=== PATIENT | female | born 1980 | race Caucasian/White ===

== ENCOUNTER 2021-01-17 10:46 | Inpatient (IN) | payer OTHER, SELFPAY ==
--- NOTE | ~2021-01-17 | CT_ITS ---
EXAMINATION: CT HAND WITH CONTRAST, RIGHT CLINICAL INFORMATION: Cellulitis/swelling COMPARISON: Radiographs 01/17/2021 TECHNIQUE: 85 mL Omnipaque 350 intravenous contrast was utilized. Multidetector helical imaging was performed through the right hand. Coronal and sagittal reformatted images were created. This CT examination was performed using dose optimization techniques as appropriate, variously including the following: *Automated exposure control *Adjustment of mA and/or kV according to patient size (this includes techniques or standardized protocols for targeted exams where dose is matched to indication/reason for exam; i.e. extremities or head) *Use of iterative reconstruction technique DLP: 111 mGy-cm FINDINGS: There is soft tissue edema throughout the dorsum of the wrist and hand. There is an irregularly-shaped peripherally enhancing low-density collection in the dorsal soft tissues extending from the distal forearm to the proximal metacarpals. The main portion of this collection measures approximately 3.5 cm in length, and on cross-sectional slices this measures up to approximately 2.4 x 1.4 cm. In the setting of cellulitis, this is consistent with abscess. A thin deeper collection is also suspected abutting the extensor digitorum tendons in the mid hand at the level of the metacarpal extending for approximately 1.7 cm in length and measuring up to 1.3 x 0.4 cm in short axis. There is subcutaneous edema in the volar aspect of the hand, left prominent than the dorsal edema. Articular alignment is anatomic. No acute fracture or significant focal osseous abnormality is seen. CT/CT hand RT w con IMPRESSION: Peripherally enhancing collection in the dorsal soft tissues extending from the distal forearm to the proximal hand, measuring approximately 3.5 cm in length. Deeper to this abutting the extensor digitorum tendons of the mid hand there is an additional thin collection measuring up to 1.7 cm in length. Appearance is suspicious for abscesses in the setting of surrounding cellulitis.
--- NOTE | ~2021-01-17 | XR_ITS ---
EXAMINATION: XR HAND, RIGHT CLINICAL INFORMATION: Rule out osteomyelitis COMPARISON: None TECHNIQUE: PA, lateral, and oblique views of the right hand. FINDINGS: Bone alignment is normal. No fracture or dislocation is seen. No x-ray evidence of osteomyelitis is seen. Joint spaces are normal. There is diffuse soft tissue swelling of the hand, particularly over the dorsal hand and wrist. XR/XR hand RT 2V IMPRESSION: Diffuse soft tissue swelling. No x-ray evidence of osteomyelitis or fracture.
[2021-01-17 11:52] VITALS: BP 115/75; PULSE 98; RESP 16; TEMP 36.7; O2SAT 98; BMI 28.3
--- NOTE | 2021-01-17 12:06 | ED_ITS ---
HPI - Extremity Problem General Chief complaint: Extremity Problem Stated complaint: Swollen arm hand Time Seen by Provider: 01/17/21 12:06 Related Data Home Medications Medication Instructions Recorded Confirmed albuterol sulfate [Ventolin HFA] 2 puff INHALATION TID PRN 01/17/21 01/17/21 cyanocobalamin (vitamin B-12) 1,000 mcg PO DAILY 01/17/21 01/17/21 [Vitamin B-12] fluticasone propion-salmeterol 1 inh INHALATION BID 01/17/21 01/17/21 [Advair Diskus] methadone [Methadose] 40 mg PO DAILY 01/17/21 01/17/21 prazosin 1 cap PO BEDTIME 01/17/21 01/17/21 quetiapine 1 tab PO BEDTIME 01/17/21 01/17/21 sertraline 1 tab PO DAILY 01/17/21 01/17/21 Allergies Allergy/AdvReac Type Severity Reaction Status Date / Time latex [Latex] Allergy Mild RASH,ITCHY Unverified 03/16/20 16:42 aspirin [ASA] Allergy Unknown AGGRAVATE Unverified 03/16/20 16:42 COLITIS furosemide [Lasix] Allergy Unknown hives Verified 03/12/19 00:00 ketorolac [From TORADOL] Allergy Unknown ANXIETY, Unverified 03/16/20 16:42 dizziness metoclopramide [From REGLAN] Allergy Unknown PASSED OUT Unverified 03/16/20 16:42 NSAIDS (Non-Steroidal Allergy Unknown AGGRAVATE Unverified 03/16/20 16:42 Anti-Inflamma COLITIS [NSAIDS (NON-STEROIDAL ANTI-INFLAMMA] promethazine [From PHENERGAN] Allergy Unknown UNKNOWN Unverified 03/16/20 16:42 tramadol [TRAMADOL] Allergy Unknown UNKNOWN Unverified 03/16/20 16:42 morphine AdvReac Unknown Verified 03/12/19 00:00 trazodone [TRAZODONE] AdvReac Unknown NAUSEA & Unverified 03/16/20 16:42 VOMITING From BENADRYL Allergy Unknown SHAKING Uncoded 03/16/20 16:42 Review of Systems Review of Systems: Constitutional : No Weight loss, No Fever, No Chills, No Night Sweats, No Fatigue, No Malaise ENT/Mouth : No Hearing loss, No Ear Pain, No Nasal Congestion, No Sinus Pain, No Hoarseness, No sore throat, No Rhinorrhea, No Swallowing Difficulty Eyes: No Eye Pain, No Swelling, No Redness, No Foreign Body, No Discharge, No Vision Changes Cardiovascular : No Chest Pain, No SOB, No Dyspnea on Exertion, No Orthopnea, No Edema, No Palpitations Respiratory : No Cough, No Sputum, No Wheezing, No Smoke Exposure, No Dyspnea Gastrointestinal : No Nausea, No Vomiting, No Diarrhea, No Constipation, No abdo immanuel Pain, No Hematochezia, No Melena Genitourinary : no irregular bleeding, No Dysuria, No Urinary Frequency, No Hematuria, No Urinary Incontinence, No Urgency, No Flank Pain, No Urinary Flow Changes, No Hesitancy Musculoskeletal : right wrist pain, No Myalgias, right wrist Joint Swelling Skin : No Skin Lesions, No rash, redness increased warmed to right wrist Neuro : No Weakness, No Numbness, No Paresthesias, No Loss of Consciousness, No Dizziness, No Headache Psych : No Anxiety/Panic, No Depression, No SI/HI/AH/VH, No Social Issues, Heme/Lymph: No Bruising, No Bleeding,No Lymphadenopathy Endocrine : No Polyuria, No Polydipsia, No Temperature Intolerance Yes all other systems are reviewed and are negative PMFSH Past Medical History Medical History (Updated 01/17/21 @ 17:36 by Swati Vegas NP) Anxiety Asthma Depression IV drug user Pancreatitis PTSD (post-traumatic stress disorder) Ulcerative colitis Social History Social History Advance Directives: No Advance Directives Information Provided: Yes Patient : No Physical Exam Vital Signs: Vital Signs: Last Vital Signs Temp 98.1 F 01/17/21 17:11 Pulse 90 01/17/21 17:11 Resp 16 01/17/21 20:09 BP 123/73 01/17/21 17:11 Pulse Ox 98 01/17/21 17:11 Body Mass Index 28.3 Const: General: healthy appearing, no acute distress and well developed Nutritional Appearance: well nourished Orientation/consciousness: patient oriented x3 Neck: Neck: Yes normal visual inspection, Yes full ROM and Yes trachea midline Thyroid: Thyroid normal Resp: Auscultation: clear to auscultation bilaterally Cardio: Rate: regular rate Rhythm: regular rhythm GI: Inspection: Yes normal to inspection and No distended Palpation (GI): No hepatosplenomegaly present Auscultation: normal bowel sounds Skin: General skin exam: elasticity normal, turgor normal and dry skin Neuro: General: patient oriented x3 Extrem: Right upper extremity: edema, no joint enlargement and wrist ( swelling, redness, increased warmth) Course Course Course Narrative: 40-year-old female here today for complaining of her right hand pain swelling. Patient is heroin user and does not checked in her hand. Patient reports that she also had syncopal episode few days ago and fell onto her right side. Patient woke up this morning with severe right hand pain and swelling. Unable to move her wrist or her fingers. Patient reports that her last time she used was last . Denies fever or chills. Denies any other symptoms. Reevaluation(s) Reevaluation #1: Patient re-evaluated by Dr. Schmidt, x-ray positive for soft tissue swelling and negative for osteomyelitis or fracture. We will admit patient for cellulitis. Mild leukocytosis. Will admit start her on Zosyn and Vanco. Blood cultures sent. Lactic 0.7 Reevaluation #2: Patient did not want a stay at the hospital, however after lo ng persuasion of the infection and the swelling increasing there is a need for IV antibiotics. Patient is agreeable and will stay at the hospital. Spoke to the hospitalist who will admit the patient. MDM - Extremity (Nontraumatic) Lab Data Result diagrams: 01/17/21 12:08 01/17/21 12:10 Labs: Lab Results 01/17/21 01/17/21 01/17/21 Range/Units 12:08 12:08 12:10 WBC 12.9 H (4.8-10.8) X10*3/uL RBC 4.34 (4.20-5.50) X10*6/uL Hgb 14.3 (12.0-16.0) g/dl Hct 42.5 (37-47) % MCV 97.9 (80-98) fL MCH 32.9 (27.0-33.0) pg MCHC 33.6 (31.0-35.0) g/dl RDW 13.7 (11.0-16.0) % Plt Count 274 (160-400) X10*3/uL MPV 9.8 (9.4-12.3) fL Immature Gran % (Auto) 0.4 (0.0-0.4) % Neut % (Auto) 83.7 H (45-73) % Lymph % (Auto) 8.4 L (20-40) % [place] % (Auto) 7.1 (2-11) % Eos % (Auto) 0.2 (0-4) % Baso % (Auto) 0.2 (0-2) % Lymph # (Auto) 1.1 L (1.2-4.9) X10*3/uL [place] # (Auto) 0.9 (0.1-1.2) X10*3/uL Eos # (Auto) 0.0 (0.0-0.4) X10*3/uL Baso # (Auto) 0.0 (0.0-0.2) X10*3/uL Abs Immat Gran (auto) 0.05 H (0.00-0.03) X10*3/uL Absolute Neuts (auto) 10.8 H (2.0-8.3) X10*3/uL Absolute Nucleated RBC 0.000 (0.0-0.012) X10*3/uL Nucleated RBC % (auto) 0.0 (0.0-0.2) /100WBC ESR 14 (0-20) MM/HR Sodium 141 (135-145) mmol/L Potassium 3.7 (3.3-5.1) mmol/L Chloride 104 (96-108) mmol/L Carbon Dioxide 25 (22-29) mmol/L Anion Gap 16 (12-20) BUN 13 (9-16) mg/dL Creatinine 0.72 (0.5-1.4) mg/dL Estim Creat Clear Calc 106.6 Estimated GFR > 60 Random Glucose 89 (60-115) mg/dL Lactic Acid (0.5-2.0) mmol/L Calcium 9.4 (8.4-10.2) mg/dL Total Bilirubin 0.5 (0.0-1.0) mg/dL AST 12 (5-31) U/L ALT 8 (0-31) U/L Alkaline Phosphatase 75 (39-117) U/L C-Reactive Protein 6.78 H (< or = 0.50) mg/dL Total Protein 7.2 (6.5-8.0) g/dL Albumin 4.4 (3.5-5.0) g/dL COVID-19 (QUE) (Negative) COVID-19 Clin Com 01/17/21 01/17/21 Range/Units 12:10 15:55 WBC (4.8-10.8) X10*3/uL RBC (4.20-5.50) X10*6/uL Hgb (12.0-16.0) g/dl Hct (37-47) % MCV (80-98) fL MCH (27.0-33.0) pg MCHC (31.0-35.0) g/dl RDW (11.0-16.0) % Plt Count (160-400) X10*3/uL MPV (9.4-12.3) fL Immature Gran % (Auto) (0.0-0.4) % Neut % (Auto) (45-73) % Lymph % (Auto) (20-40) % [place] % (Auto) (2-11) % Eos % (Auto) (0-4) % Baso % (Auto) (0-2) % Lymph # (Auto) (1.2-4.9) X10*3/uL [place] # (Auto) (0.1-1.2) X10*3/uL Eos # (Auto) (0.0-0.4) X10*3/uL Baso # (Auto) (0.0-0.2) X10*3/uL Abs Immat Gran (auto) (0.00-0.03) X10*3/uL Absolute Neuts (auto) (2.0-8.3) X10*3/uL Absolute Nucleated RBC (0.0-0.012) X10*3/uL Nucleated RBC % (auto) (0.0-0.2) /100WBC ESR (0-20) MM/HR Sodium (135-145) mmol/L Potassium (3.3-5.1) mmol/L Chloride (96-108) mmol/L Carbon Dioxide (22-29) mmol/L Anion Gap (12-20) BUN (9-16) mg/dL Creatinine (0.5-1.4) mg/dL Estim Creat Clear Calc Estimated GFR Random Glucose (60-115) mg/dL Lactic Acid 0.7 (0.5-2.0) mmol/L Calcium (8.4-10.2) mg/dL Total Bilirubin (0.0-1.0) mg/dL AST (5-31) U/L ALT (0-31) U/L Alkaline Phosphatase (39-117) U/L C-Reactive Protein (< or = 0.50) mg/dL Total Protein (6.5-8.0) g/dL Albumin (3.5-5.0) g/dL COVID-19 (QUE) Negative (Negative) COVID-19 Clin Com See Note Imaging Data right hand x-ray: Radiologist's impression: FINDINGS: Bone alignment is normal. No fracture or dislocation is seen. No x-ray evidence of osteomyelitis is seen. Joint spaces are normal. There is diffuse soft tissue swelling of the hand, particularly over the dorsal hand and wrist.
[2021-01-17 12:18] LABS: MANUAL DIFF FLAG NO
[2021-01-17 12:22] LABS: Basophils Percent Auto 0.2 % (0-2); Eosinophils Percent Auto 0.2 % (0-4); Hematocrit 42.5 % (37-47); Hemoglobin 14.3 g/dl (12.0-16.0); Imm Gran Abs Auto 0.05 X10*3/uL (0.00-0.03); Imm Gran Pct Auto 0.4 % (0.0-0.4); Lymphocytes Absolute Auto 1.1 X10*3/uL (1.2-4.9); Lymphocytes Percent Auto 8.4 % (20-40); Mean Corpuscular HGB Conc 33.6 g/dl (31.0-35.0); Mean Corpuscular Hemoglobin 32.9 pg (27.0-33.0); Mean Corpuscular Volume 97.9 fL (80-98); Mean Platelet Volume 9.8 fL (9.4-12.3); Monocytes Absolute Auto 0.9 X10*3/uL (0.1-1.2); Monocytes Percent Auto 7.1 % (2-11); Neutrophils Absolute Auto 10.8 X10*3/uL (2.0-8.3); Neutrophils Percent Auto 83.7 % (45-73); Platelet Count 274 X10*3/uL (160-400); Red Blood Count 4.34 X10*6/uL (4.20-5.50); Red Cell Distribution Width 13.7 % (11.0-16.0); White Blood Count 12.9 X10*3/uL (4.8-10.8)
[2021-01-17 12:45] LABS: Lactic Acid 0.7 mmol/L (0.5-2.0)
[2021-01-17 13:10] LABS: Alanine Aminotransferase 8 U/L (0-31); Albumin Level 4.4 g/dL (3.5-5.0); Alkaline Phosphatase 75 U/L (39-117); Anion Gap 16 (12-20); Aspartate Amino Transferase 12 U/L (5-31); Bilirubin Total 0.5 mg/dL (0.0-1.0); Blood Urea Nitrogen 13 mg/dL (9-16); C Reactive Protein 6.78 mg/dL (< or = 0.50); Calcium 9.4 mg/dL (8.4-10.2); Carbon Dioxide 25 mmol/L (22-29); Chloride 104 mmol/L (96-108); Creatinine Clr Calc Pharmacy 106.6; Estimated Glomerular Filt Rate > 60; Glucose Random 89 mg/dL (60-115); Potassium 3.7 mmol/L (3.3-5.1); Sodium 141 mmol/L (135-145); Total Protein 7.2 g/dL (6.5-8.0)
[2021-01-17 13:12] LABS: Erythrocyte Sedimentation Rate 14 MM/HR (0-20)
--- NOTE | 2021-01-17 13:29 | PC.NURSE ---
AWAITING 2ND SET BLOOD CX PRIOR TO ANTIBIOTICS, DIFFICULT STICK
[2021-01-17] MEDS: HYDROmorphone HCl 1 MG/ML SYRINGE IVPUSH ×2 (14:20→16:42)
--- NOTE | 2021-01-17 15:56 | PC.NURSE ---
pt is a tough stick- multiple attempts even by phelb- plan to start abx
[2021-01-17] MEDS: Piperacillin Sodium/Tazobactam 3.375 GM in 0.9 % Sodium Chloride 50 ML IV ×2 (16:05→20:37)
--- NOTE | 2021-01-17 16:05 | PC.NURSE ---
staff had difficulty obtaining blood cultures from patient therefore delaying the administration of the iv antibiotics
[2021-01-17 16:24] LABS: COVID-19 Test Negative (Negative)
--- NOTE | 2021-01-17 17:02 | PC.NURSE ---
patients belongings was gone through via security
[2021-01-17 17:11] VITALS: BP 123/73; PULSE 90; RESP 16; TEMP 36.7; O2SAT 98
[2021-01-17] MEDS: 0.9 % Sodium Chloride 1,000 ML 999 ML IV (17:11)
[2021-01-17] MEDS: vancomycin HCL 1,000 MG in 0.9 % Sodium Chloride 250 ML 270 MG IV (17:11)
--- NOTE | 2021-01-17 17:30 | PM.IMHP ---
Assessment and Plan (1) Hand swelling: Status: Acute 40-year-old woman presents to the ER with right hand swelling and pain after injection of IV heroin. Right hand swelling. likely cellulitis, redness, significant swelling, soft compartments X-ray shows diffuse soft tissue swelling with no evidence of osteomyelitis or fracture Will treat with vancomycin and Zosyn Id consult Follow blood cultures Pain control Leukocytosis. Secondary to cellulitis follow CBC Opiate abuse On methadone, verify dose in the morning Addiction Services consult DVT prophylaxis with Lovenox Attending Dr. San Full code History of Present Illness Date of Service: 01/17/21 Chief Complaint: Hand pain 40-year-old woman presented to the ER with complaints of worsening right hand swelling. She has a history of heroin use and injected in that hand. She noted swelling that was worse today. She reports that she woke up this morning with severe right hand pain and noted that he was quite swollen. She denied fever, chills, nausea, vomiting, diarrhea she denied heroin use today and reported her last time that she use was last . Apparently in the ER patient was in the bathroom for some time there was concern for heroin use at that time, she was searched by security team. She had a x-ray of the right hand which showed diffuse soft tissue swelling with no evidence of osteomyelitis or fracture. She was given vancomycin, Zosyn, Dilaudid. She will be admitted for further management and treatment of acute cellulitis and edema to right hand. Review of Systems Review of Systems: Denies any recent fever chills or decrease in appetite respiratory denies any shortness of breath coverage production cardiovascular denies chest pain gastrointestinal denies any dysphagia abdominal pain nausea vomiting or diarrhea genitourinary denies any dysuria frequency or hematuria musculoskeletal See above neuropsych denies any weakness or seizures all other systems reviewed are negative [facility] Medical History Anxiety Asthma Cholecystectomy planned Depression IV drug user Pancreatitis PTSD (post-traumatic stress disorder) Ulcerative colitis Surgical History Tubal ligation status Social History Household Members: Family Household Members Other:: mother Housing: House Do you presently have visiting nurse or other home services: No Patient Tobacco Use Status: Current everyday Tobacco user Tobacco use type: Cigarette Cigarette Packs Per Day: 1 Cigarettes Per Day: 20.0 Smoked in Last 30 Days: Yes e-Cigarette/Vaping Use: Never Used Patient Interested in Nicotine Replacement: Yes Patient Given Instructions on How to Stop Smoking: Yes Date Education Initiated: 01/18/21 Second Hand Smoke Exposure: Yes Use of substances other than those prescribed or required for medical reasons: No Currently Displaying Signs/Symptoms of Drug Intoxication Withdrawal: No Have you been hit, kicked, punched, or otherwise hurt by someone within the past year? If so, by whom?: No Do you feel safe in your current relationship?: No Current Relationship Is there a partner from a previous relationship who is making you feel unsafe now?: No Are you made to feel afraid or neglected: No Are you DNR?: No Advance Directives: No Advance Directives Information Provided: Yes Do you have thoughts of harming others: None Do you have a plan to hurt others: No Plan Recently lost weight without trying: No How much weight loss: Not applicable Eating poorly because of decreased appetite: No Nutrition screen score: 0 Nutrition Risks: No Nutritional Risk Patient : No : No Poor oral hygiene: No service: No Meds Allergies Allergy/AdvReac Type Severity Reaction Status Date / Time latex [Latex] Allergy Mild RASH,ITCHY Verified 01/18/21 10:27 aspirin [ASA] Allergy Unknown AGGRAVATE Verified 01/18/21 10:28 COLITIS furosemide [Lasix] Allergy Unknown hives Verified 03/12/19 00:00 ketorolac [From TORADOL] Allergy Unknown ANXIETY, Verified 01/18/21 10:27 dizziness metoclopramide [From REGLAN] Allergy Unknown PASSED OUT Verified 01/18/21 10:28 NSAIDS (Non-Steroidal Allergy Unknown AGGRAVATE Verified 01/18/21 10:27 Anti-Inflamma COLITIS [NSAIDS (NON-STEROIDAL ANTI-INFLAMMA] promethazine [From PHENERGAN] Allergy Unknown UNKNOWN Verified 01/18/21 10:27 tramadol [TRAMADOL] Allergy Unknown UNKNOWN Verified 01/18/21 10:27 morphine AdvReac Unknown angry Verified 01/18/21 10:27 trazodone [TRAZODONE] AdvReac Unknown NAUSEA & Verified 01/18/21 10:27 VOMITING From BENADRYL Allergy Unknown SHAKING Uncoded 03/16/20 16:42 Home Medications Medication Instructions Recorded Confirmed Last Taken Type albuterol sulfate [Ventolin HFA] 2 puff INHALATION TID PRN 01/17/21 01/17/21 Unknown History cyanocobalamin (vitamin B-12) 1,000 mcg PO DAILY 01/17/21 01/17/21 01/16/21 History [Vitamin B-12] fluticasone propion-salmeterol 1 inh INHALATION BID 01/17/21 01/17/21 01/16/21 History [Advair Diskus] methadone [Methadose] 40 mg PO DAILY 01/17/21 01/17/21 01/16/21 History prazosin 1 cap PO BEDTIME 01/17/21 01/17/21 01/16/21 History quetiapine 1 tab PO BEDTIME 01/17/21 01/17/21 01/16/21 History sertraline 1 tab PO DAILY 01/17/21 01/17/21 01/16/21 History Physical Exam Vital Signs and Narrative: Vital Signs: Last Vital Signs Temp 98.1 F 01/17/21 17:11 Pulse 90 01/17/21 17:11 Resp 16 01/17/21 17:11 BP 123/73 01/17/21 17:11 Pulse Ox 98 01/17/21 17:11 Body Mass Index 28.3 Appearing in no acute distress head is normocephalic atraumatic eyes pupils are PERRLA sclera is anicteric mouth throat mucous membranes are intact and moist neck is supple no lymphadenopathy, no JVD noted lung sounds are clear to auscultation heart regular rate rhythm, clear S1, S2 positive bowel sounds, abdomen is soft, nontender neuro patient is alert x3, no focal deficits right hand edema with some scratches on the top of the hand No open wound or drainage, soft compartments No tracing of redness of the arm Results Labs CBC and Chem 7: 01/19/21 08:18 01/19/21 08:18 Labs: Laboratory Results - last 24 hr 01/17/21 01/17/21 01/17/21 12:08 12:08 12:10 MCV 97.9 MCH 32.9 MCHC 33.6 RDW 13.7 Plt Count 274 MPV 9.8 Immature Gran % (Auto) 0.4 Neut % (Auto) 83.7 H Lymph % (Auto) 8.4 L [place] % (Auto) 7.1 Eos % (Auto) 0.2 Baso % (Auto) 0.2 Lymph # (Auto) 1.1 L [place] # (Auto) 0.9 Eos # (Auto) 0.0 Baso # (Auto) 0.0 Abs Immat Gran (auto) 0.05 H Absolute Neuts (auto) 10.8 H Absolute Nucleated RBC 0.000 Nucleated RBC % (auto) 0.0 ESR 14 Anion Gap 16 Estim Creat Clear Calc 106.6 Estimated GFR > 60 Random Glucose 89 Lactic Acid Calcium 9.4 Total Bilirubin 0.5 AST 12 ALT 8 Alkaline Phosphatase 75 C-Reactive Protein 6.78 H Total Protein 7.2 Albumin 4.4 COVID-19 (QUE) COVID-19 Clin Com 01/17/21 01/17/21 12:10 15:55 MCV MCH MCHC RDW Plt Count MPV Immature Gran % (Auto) Neut % (Auto) Lymph % (Auto) [place] % (Auto) Eos % (Auto) Baso % (Auto) Lymph # (Auto) [place] # (Auto) Eos # (Auto) Baso # (Auto) Abs Immat Gran (auto) Absolute Neuts (auto) Absolute Nucleated RBC Nucleated RBC % (auto) ESR Anion Gap Estim Creat Clear Calc Estimated GFR Random Glucose Lactic Acid 0.7 Calcium Total Bilirubin AST ALT Alkaline Phosphatase C-Reactive Protein Total Protein Albumin COVID-19 (QUE) Negative COVID-19 Clin Com See Note Imaging Radiologist's Impressions: Impressions Hand X-Ray 01/17/21 12:24 IMPRESSION: Diffuse soft tissue swelling. No x-ray evidence of osteomyelitis or fracture. Quality Stroke Does the patient have a stroke diagnosis?: No VTE Prior VTE?: No VTE Risk Level:: Medical - moderate - high VTE Device Contraindication: Treatment Not Indicated VTE Drug Contraindication: N/A - Med Ordered
--- NOTE | 2021-01-17 17:53 | PHA.MEDREC ---
Pharmacy Consult ? Medication Reconciliation Pharmacy has completed the medication reconciliation.
--- NOTE | 2021-01-17 18:29 | PM.EVENT ---
Event Note Date of Service: 01/17/21 Event Note: Patient seen examined case discussed with APC 40-year-old female with past medical history of anxiety, asthma, depression, PTSD, ulcerative colitis, active IV heroin use presented to [facility] ER due to right hand swelling and pain, x-ray showed diffuse soft tissue swelling no evidence of osteomyelitis of fracture, patient noted to have elevated WBC count of 12.8, had no fever chills, but noted to be tachycardic Now being admitted to [facility] with right hand cellulitis/sepsis will continue IV vancomycin and Zosyn In regard to active IV drug use will treat with IV Dilaudid, as needed Ativan obtain addiction team consult, continue home dose of methadone.
--- NOTE | 2021-01-17 18:46 | PC.NURSE ---
This RN contacting the lab regarding second set of BCX. Per airbrush artist, second set was drawn by the lab several hours ago. Lab looking into second set of BCX.
--- NOTE | 2021-01-17 18:49 | PC.NURSE ---
Lab located the second set of BCX.
[2021-01-17 20:09] VITALS: RESP 16
[2021-01-17] MEDS: HYDROmorphone HCl 0.5 MG/0.5 ML SYRINGE IVPUSH (20:09)
[2021-01-17] MEDS: Enoxaparin Sodium 40 MG/0.4 ML SYRINGE SUBCUT (20:37)
[2021-01-17] MEDS: Acetaminophen 325 MG TABLET 650 MG PO (21:46)
[2021-01-17 21:47] VITALS: RESP 16
[2021-01-17] MEDS: LORazepam 0.5 MG TABLET 0.25 MG PO (21:47)
[2021-01-17 22:05] VITALS: BP 122/73; PULSE 83; RESP 20; TEMP 36.8; O2SAT 99
--- NOTE | 2021-01-17 22:40 | PM.EVENT ---
Event Note Date of Service: 01/18/21 Event Note: Hand cellulitis: 10:30 p.m. on 01/17/2021: Patient reported pain in the head noted improving; also complains of numbness in the tip of the distal index finger. Per RN patient has been asking for IV pain medications-unclear if it is high tolerance to opiates given opiate abuse history. pt's hand is tender, warm and firm on dorsum; pt didnot let me examine pulses. Spoke to orthopedics team who covering hand surgery Dr Anguiano/Lucila team, discussed the exam findings in detail; recommended apply warm compresses 20 mins at a time around the clock and we can eval in the AM. Keep her NPO just in case need to go to OR . mentioned no emergency intervention tonight. CT scan of the hand ordered. Update: CT hand showed:Peripherally enhancing collection in the dorsal soft tissues extendingfrom the distal forearm to the proximal hand, measuring approximately 3.5 cm in length. Deeper to this abutting the extensor digitorumtendons of the mid hand there is an additional thin collectionmeasuring up to 1.7 cm in length. Appearance is suspicious for abscesses in the setting of surrounding cellulitis. Conveyed results to ortho team.
[2021-01-17 22:58] VITALS: RESP 16
[2021-01-17] MEDS: oxyCODONE HCl Immed Release 5 MG TABLET 10 MG PO (23:04)
[2021-01-18] VITALS (22 sets, daily range): BP systolic 103–140; BP diastolic 59–94; PULSE 67–102; RESP 13–22; TEMP 36.3–37.3; O2SAT 94–99; BMI 28.3
[2021-01-18] MEDS: Dextrose 5 % and 0.45 % NaCl 1,000 ML 80 ML IVCONT (00:19)
[2021-01-18] MEDS: vancomycin HCL 1,000 MG in 0.9 % Sodium Chloride 250 ML 270 MG IV ×2 (00:19→13:21)
[2021-01-18] MEDS: 0.9 % Sodium Chloride Flush 3 ML SYRINGE IVFLUSH ×3 (00:19→20:49)
[2021-01-18] MEDS: HYDROmorphone HCl 0.5 MG/0.5 ML SYRINGE IVPUSH ×5 (01:27→14:06)
[2021-01-18] MEDS: iohexoL 350 MG/ML 100 ML INFUS..BTL 85 ML IV (02:20)
[2021-01-18] MEDS: Piperacillin Sodium/Tazobactam 3.375 GM in 0.9 % Sodium Chloride 50 ML IV ×4 (02:39→20:48)
[2021-01-18] MEDS: oxyCODONE HCl Immed Release 5 MG TABLET 10 MG PO ×5 (03:59→20:53)
--- NOTE | 2021-01-18 06:17 | PC.NURSE ---
CARE ASSUMED 23;15..AWAKE..ALERT...ORIENTED X3...RIGHT HAND/WRIST REDDENED/SWOLLEN/EDEMATOUS...C/O SEVERE RIGHT HAND PAIN...MEDICATED WITH PRN DILAUDID 01:30....F/U CT RIGHT HAND DONE....NAPPED INTERMITTANTLY...AWAKE..CRYING 4AM...C/O SEVERE RIGHT HAND PAIN...PRN OXYCODONE GIVEN W/O EFFECT...HOSPITALIST UPDATED VIA TIGERTEXT...PER PRN DILAUDID GIVEN EARLY AT 04:30...DOZING 15 AFTER
[2021-01-18] MEDS: Acetaminophen 325 MG TABLET 650 MG PO (08:05)
[2021-01-18] MEDS: ondansetron HCL 4 MG/2 ML VIAL IVPUSH ×2 (08:42→13:05)
[2021-01-18 08:51] LABS: MANUAL DIFF FLAG NO
[2021-01-18 09:09] LABS: Basophils Percent Auto 0.1 % (0-2); Eosinophils Absolute Auto 0.1 X10*3/uL (0.0-0.4); Eosinophils Percent Auto 0.9 % (0-4); Hematocrit 38.1 % (37-47); Hemoglobin 12.6 g/dl (12.0-16.0); Imm Gran Abs Auto 0.04 X10*3/uL (0.00-0.03); Imm Gran Pct Auto 0.4 % (0.0-0.4); Lymphocytes Absolute Auto 1.5 X10*3/uL (1.2-4.9); Lymphocytes Percent Auto 14.3 % (20-40); Mean Corpuscular HGB Conc 33.1 g/dl (31.0-35.0); Mean Corpuscular Volume 96.7 fL (80-98); Mean Platelet Volume 10.4 fL (9.4-12.3); Monocytes Absolute Auto 0.8 X10*3/uL (0.1-1.2); Neutrophils Absolute Auto 7.9 X10*3/uL (2.0-8.3); Neutrophils Percent Auto 76.3 % (45-73); Platelet Count 248 X10*3/uL (160-400); Red Blood Count 3.94 X10*6/uL (4.20-5.50); Red Cell Distribution Width 13.4 % (11.0-16.0); White Blood Count 10.4 X10*3/uL (4.8-10.8)
--- NOTE | 2021-01-18 09:21 | PM.CNOR ---
History of Present Illness HPI Consult date: 01/18/21 Chief complaint: cellulitis Narrative: This is a 40-year-old female who presented to the emergency department with increasing redness and pain in the right hand. She states she injected heroin into the hand about a week ago. She states 2 days ago she noticed increased pain and swelling over the dorsum of the right hand. This prompted her to come to the emergency department. While in the emergency department she had a white count of 12.9. She was admitted to the medical service and started on IV antibiotics and Orthopedics was consulted for further recommendations. Review of Systems Review of Systems: Yes all other systems are reviewed and are negative PMFSH Past Medical History Medical History (Updated 01/18/21 @ 09:25 by Aranza Dangelo PA-C) Anxiety Asthma Depression IV drug user Pancreatitis PTSD (post-traumatic stress disorder) Ulcerative colitis Social History Social History Household Members: Family Household Members Other:: mother Housing: House Do you presently have visiting nurse or other home services: No Patient Tobacco Use Status: Current everyday Tobacco user Tobacco use type: Cigarette Cigarette Packs Per Day: 1 Cigarettes Per Day: 20.0 Smoked in Last 30 Days: Yes e-Cigarette/Vaping Use: Never Used Patient Interested in Nicotine Replacement: Yes Patient Given Instructions on How to Stop Smoking: Yes Date Education Initiated: 01/18/21 Second Hand Smoke Exposure: Yes Use of substances other than those prescribed or required for medical reasons: No Currently Displaying Signs/Symptoms of Drug Intoxication Withdrawal: No Have you been hit, kicked, punched, or otherwise hurt by someone within the past year? If so, by whom?: No Do you feel safe in your current relationship?: No Current Relationship Is there a partner from a previous relationship who is making you feel unsafe now?: No Are you made to feel afraid or neglected: No Advance Directives: No Advance Directives Information Provided: Yes Do you have thoughts of harming others: None Do you have a plan to hurt others: No Plan Recently lost weight without trying: No How much weight loss: Not applicable Eating poorly because of decreased appetite: No Nutrition screen score: 0 Nutrition Risks: No Nutritional Risk Patient : No : No Poor oral hygiene: No Meds Allergies Allergy/AdvReac Type Severity Reaction Status Date / Time latex [Latex] Allergy Mild RASH,ITCHY Unverified 03/16/20 16:42 aspirin [ASA] Allergy Unknown AGGRAVATE Unverified 03/16/20 16:42 COLITIS furosemide [Lasix] Allergy Unknown hives Verified 03/12/19 00:00 ketorolac [From TORADOL] Allergy Unknown ANXIETY, Unverified 03/16/20 16:42 dizziness metoclopramide [From REGLAN] Allergy Unknown PASSED OUT Unverified 03/16/20 16:42 NSAIDS (Non-Steroidal Allergy Unknown AGGRAVATE Unverified 03/16/20 16:42 Anti-Inflamma COLITIS [NSAIDS (NON-STEROIDAL ANTI-INFLAMMA] promethazine [From PHENERGAN] Allergy Unknown UNKNOWN Unverified 03/16/20 16:42 tramadol [TRAMADOL] Allergy Unknown UNKNOWN Unverified 03/16/20 16:42 morphine AdvReac Unknown Verified 03/12/19 00:00 trazodone [TRAZODONE] AdvReac Unknown NAUSEA & Unverified 03/16/20 16:42 VOMITING From BENADRYL Allergy Unknown SHAKING Uncoded 03/16/20 16:42 Active Medications: Current Medications Generic Name Dose Route Start Last Admin Trade Name Freq PRN Reason Stop Dose Admin Acetaminophen 650 mg 01/17/21 17:50 01/18/21 08:05 Acetaminophen 325 Mg Tablet PO 650 mg Q6H PRN Administration Pain, Mild (Pain Scale 1-3) Enoxaparin Sodium 40 mg 01/17/21 21:00 01/17/21 20:37 Enoxaparin Sodium 40 Mg/0.4 Ml Syringe SUBCUT 40 mg Q24H ROLO Administration Hydromorphone HCl 0.5 mg 01/17/21 17:52 01/18/21 08:42 Hydromorphone Hcl 0.5 Mg/0.5 Ml Syringe IVPUSH 0.5 mg Q4H PRN Administration Pain, Mild (Pain Scale 1-3) Piperacillin Sod/Tazobactam 50 mls @ 100 mls/hr 01/17/21 21:00 01/18/21 08:41 Sod 3.375 gm/ Sodium Chloride IV Infused Q6H ROLO Infusion Vancomycin HCl 1,000 mg/ 270 mls @ 270 mls/hr 01/18/21 00:00 01/18/21 01:22 Sodium Chloride IV Infused Q12H ROLO Infusion Dextrose/Sodium Chloride 1,000 mls @ 80 mls/hr 01/17/21 23:00 01/18/21 00:19 D51/2ns IVCONT 80 mls/hr .[id number] ROLO Administration Lorazepam 0.25 mg 01/17/21 18:36 01/17/21 21:47 Lorazepam 0.5 Mg Tablet PO 0.25 mg Q6H PRN Administration anxiety Ondansetron HCl 4 mg 01/17/21 17:50 01/18/21 08:42 Ondansetron Hcl 4 Mg/2 Ml Vial IVPUSH 4 mg Q8H PRN Administration Nausea and Vomiting Oxycodone HCl 10 mg 01/17/21 17:52 01/18/21 08:05 Oxycodone Hcl Immed Release 5 Mg Tablet PO 10 mg Q4H PRN Administration Pain, Mild (Pain Scale 1-3) Pharmacy Consult 1 each 01/17/21 17:36 Consult Rx Perform Med Rec MISCELLANE ONCE PRN Consult order Pharmacy Consult 1 each 01/17/21 18:34 Consult Rx Vancomycin Dosing MISCELLANE DAILY PRN Consult order Sodium Chloride 3 ml 01/18/21 00:00 01/18/21 08:04 0.9 % Sodium Chloride Flush 3 Ml Syringe IVFLUSH Not Given [facility]SHIFT [facility] Home Medications Medication Instructions Recorded Confirmed Last Taken Type albuterol sulfate [Ventolin HFA] 2 puff INHALATION TID PRN 01/17/21 01/17/21 Unknown History cyanocobalamin (vitamin B-12) 1,000 mcg PO DAILY 01/17/21 01/17/21 01/16/21 History [Vitamin B-12] fluticasone propion-salmeterol 1 inh INHALATION BID 01/17/21 01/17/21 01/16/21 History [Advair Diskus] methadone [Methadose] 40 mg PO DAILY 01/17/21 01/17/21 01/16/21 History prazosin 1 cap PO BEDTIME 01/17/21 01/17/21 01/16/21 History quetiapine 1 tab PO BEDTIME 01/17/21 01/17/21 01/16/21 History sertraline 1 tab PO DAILY 01/17/21 01/17/21 01/16/21 History Physical Exam Vital Signs: Vital Signs: Last Vital Signs Temp 97.4 F 01/18/21 08:00 Pulse 70 01/18/21 08:00 Resp 19 01/18/21 08:42 BP 103/59 L 01/18/21 01:31 Pulse Ox 97 01/18/21 08:00 Body Mass Index 28.3 Const: General: cooperative, healthy appearing and comfortable Extrem: Other: Right hand skin intact. There is significant swelling and tension over the dorsum of the right hand extending into all fingers. She does hold her fingers in a slightly flexed position. She has pain with passive extension. She is unable to make fist. She does have range of motion of the wrist with mild discomfort. There is redness extending from the wrist into the forearm. Forearm is soft. Pulses are present. Xrays of the right hand: Diffuse soft tissue swelling. No x-ray evidence of osteomyelitis or fracture. CT scan of the right hand: Peripherally enhancing collection in the dorsal soft tissues extending from the distal forearm to the proximal hand, measuring approximately 3.5 cm in length. Deeper to this abutting the extensor digitorum tendons of the mid hand there is an additional thin collection measuring up to 1.7 cm in length. Appearance is suspicious for abscesses in the setting of surrounding cellulitis. Results Labs Result Diagrams: 01/17/21 12:08 01/17/21 12:10 Labs: Abnormal lab results 01/17/21 01/17/21 Range/Units 12:08 12:10 WBC 12.9 H (4.8-10.8) X10*3/uL Neut % (Auto) 83.7 H (45-73) % Lymph % (Auto) 8.4 L (20-40) % Lymph # (Auto) 1.1 L (1.2-4.9) X10*3/uL Abs Immat Gran (auto) 0.05 H (0.00-0.03) X10*3/uL Absolute Neuts (auto) 10.8 H (2.0-8.3) X10*3/uL C-Reactive Protein 6.78 H (< or = 0.50) mg/dL H & H 01/17/21 Range/Units 12:08 Hgb 14.3 (12.0-16.0) g/dl Hct 42.5 (37-47) % All other labs normal. Assessment and Plan (1) Abscess of right hand: Status: Acute I discussed the case with Dr Anguiano and explained the extent of the injury to the patient and options available which include surgical intervention. I explained the procedure in detail along with the length of recovery and rehab course. I explained the risk, benefits and alternatives. Risk including, but not limited to infection, blood clots, bleeding, and nerve/tissue damage to surrounding areas. I answered all their questions and with their understanding they have consented to move forward with I and D of the right hand with Dr. Anguiano. Procedures Date of Service Date of Service: 01/18/21
[2021-01-18 09:35] LABS: Anion Gap 13 (12-20); Blood Urea Nitrogen 7 mg/dL (9-16); Calcium 8.6 mg/dL (8.4-10.2); Carbon Dioxide 24 mmol/L (22-29); Chloride 104 mmol/L (96-108); Estimated Glomerular Filt Rate > 60; Glucose Random 113 mg/dL (60-115); Potassium 3.5 mmol/L (3.3-5.1); Sodium 137 mmol/L (135-145)
--- NOTE | 2021-01-18 09:36 | HO.PM.IMPN ---
Subjective Subjective Date of Service: 01/18/21 Interval History: F/u on right hand/arm cellulitis, more swelling, spreading quickly with more pain Review of Systems Gen: no fever Resp: no sob, no cough CV: no chest, no TURPIN, no leg edema GI: No n/v, no abd pain Neuro: No confusion Pain and limitted movment in right arm, hand Physical Exam Vital Signs: Vital Signs: Last Vital Signs Temp 97.4 F 01/18/21 08:00 Pulse 70 01/18/21 08:00 Resp 19 01/18/21 08:42 BP 103/59 L 01/18/21 01:31 Pulse Ox 97 01/18/21 08:00 Body Mass Index 28.3 Const: Orientation/consciousness: patient oriented x3 Resp: Auscultation: clear to auscultation bilaterally Cardio: Rate: regular rate Rhythm: regular rhythm GI: Inspection: Yes normal to inspection and No distended Palpation (GI): No hepatosplenomegaly present Auscultation: normal bowel sounds Skin: Other: General skin exam: elasticity normal, turgor normal and dry skin Neuro: General: patient oriented x3 Extrem: Other: Right hand skin intact. There is significant swelling and tension over the dorsum of the right hand extending into all fingers. She does hold her fingers in a slightly flexed position. She has pain with passive extension. She is unable to make fist. She does have range of motion of the wrist with mild discomfort. There is redness extending from the wrist into the forearm. Forearm is soft. Pulses are present. Right upper extremity: edema, no joint enlargement and wrist ( swelling, redness, increased warmth) Objective Data Current Medications Generic Name Dose Route Start Last Admin Trade Name Jose Juanq PRN Reason Stop Dose Admin Acetaminophen 650 mg 01/17/21 17:50 01/18/21 08:05 Acetaminophen 325 Mg Tablet PO 650 mg Q6H PRN Administration Pain, Mild (Pain Scale 1-3) Enoxaparin Sodium 40 mg 01/17/21 21:00 01/17/21 20:37 Enoxaparin Sodium 40 Mg/0.4 Ml Syringe SUBCUT 40 mg Q24H ROLO Administration Hydromorphone HCl 0.5 mg 01/17/21 17:52 01/18/21 08:42 Hydromorphone Hcl 0.5 Mg/0.5 Ml Syringe IVPUSH 0.5 mg Q4H PRN Administration Pain, Mild (Pain Scale 1-3) Piperacillin Sod/Tazobactam 50 mls @ 100 mls/hr 01/17/21 21:00 01/18/21 08:41 Sod 3.375 gm/ Sodium Chloride IV Infused Q6H ROLO Infusion Vancomycin HCl 1,000 mg/ 270 mls @ 270 mls/hr 01/18/21 00:00 01/18/21 01:22 Sodium Chloride IV Infused Q12H ROLO Infusion Dextrose/Sodium Chloride 1,000 mls @ 80 mls/hr 01/17/21 23:00 01/18/21 00:19 D51/2ns IVCONT 80 mls/hr .[id number] ROLO Administration Lorazepam 0.25 mg 01/17/21 18:36 01/17/21 21:47 Lorazepam 0.5 Mg Tablet PO 0.25 mg Q6H PRN Administration anxiety Ondansetron HCl 4 mg 01/17/21 17:50 01/18/21 08:42 Ondansetron Hcl 4 Mg/2 Ml Vial IVPUSH 4 mg Q8H PRN Administration Nausea and Vomiting Oxycodone HCl 10 mg 01/17/21 17:52 01/18/21 08:05 Oxycodone Hcl Immed Release 5 Mg Tablet PO 10 mg Q4H PRN Administration Pain, Mild (Pain Scale 1-3) Pharmacy Consult 1 each 01/17/21 17:36 Consult Rx Perform Med Rec MISCELLANE ONCE PRN Consult order Pharmacy Consult 1 each 01/17/21 18:34 Consult Rx Vancomycin Dosing MISCELLANE DAILY PRN Consult order Sodium Chloride 3 ml 01/18/21 00:00 01/18/21 08:04 0.9 % Sodium Chloride Flush 3 Ml Syringe IVFLUSH Not Given QSHIFT [facility] Labs CBC & Chem 7: 01/18/21 08:03 01/18/21 08:03 Labs: Laboratory Results - last 24 hr 01/17/21 01/17/21 01/17/21 12:08 12:08 12:10 WBC 12.9 H RBC 4.34 Hgb 14.3 Hct 42.5 MCV 97.9 MCH 32.9 MCHC 33.6 RDW 13.7 Plt Count 274 MPV 9.8 Immature Gran % (Auto) 0.4 Neut % (Auto) 83.7 H Lymph % (Auto) 8.4 L [place] % (Auto) 7.1 Eos % (Auto) 0.2 Baso % (Auto) 0.2 Lymph # (Auto) 1.1 L [place] # (Auto) 0.9 Eos # (Auto) 0.0 Baso # (Auto) 0.0 Abs Immat Gran (auto) 0.05 H Absolute Neuts (auto) 10.8 H Absolute Nucleated RBC 0.000 Nucleated RBC % (auto) 0.0 ESR 14 Sodium 141 Potassium 3.7 Chloride 104 Carbon Dioxide 25 Anion Gap 16 BUN 13 Creatinine 0.72 Estim Creat Clear Calc 106.6 Estimated GFR > 60 Random Glucose 89 Lactic Acid Calcium 9.4 Total Bilirubin 0.5 AST 12 ALT 8 Alkaline Phosphatase 75 C-Reactive Protein 6.78 H Total Protein 7.2 Albumin 4.4 COVID-19 (QUE) COVID-19 Clin Com 01/17/21 01/17/21 01/18/21 12:10 15:55 08:03 WBC 10.4 RBC 3.94 L Hgb 12.6 Hct 38.1 MCV 96.7 MCH 32.0 MCHC 33.1 RDW 13.4 Plt Count 248 MPV 10.4 Immature Gran % (Auto) 0.4 Neut % (Auto) 76.3 H Lymph % (Auto) 14.3 L [place] % (Auto) 8.0 Eos % (Auto) 0.9 Baso % (Auto) 0.1 Lymph # (Auto) 1.5 [place] # (Auto) 0.8 Eos # (Auto) 0.1 Baso # (Auto) 0.0 Abs Immat Gran (auto) 0.04 H Absolute Neuts (auto) 7.9 Absolute Nucleated RBC 0.000 Nucleated RBC % (auto) 0.0 ESR Sodium Potassium Chloride Carbon Dioxide Anion Gap BUN Creatinine Estim Creat Clear Calc Estimated GFR Random Glucose Lactic Acid 0.7 Calcium Total Bilirubin AST ALT Alkaline Phosphatase C-Reactive Protein Total Protein Albumin COVID-19 (QUE) Negative COVID-19 Clin Com See Note 01/18/21 08:03 WBC RBC Hgb Hct MCV MCH MCHC RDW Plt Count MPV Immature Gran % (Auto) Neut % (Auto) Lymph % (Auto) [place] % (Auto) Eos % (Auto) Baso % (Auto) Lymph # (Auto) [place] # (Auto) Eos # (Auto) Baso # (Auto) Abs Immat Gran (auto) Absolute Neuts (auto) Absolute Nucleated RBC Nucleated RBC % (auto) ESR Sodium 137 Potassium 3.5 Chloride 104 Carbon Dioxide 24 Anion Gap 13 BUN 7 L Creatinine 0.60 Estim Creat Clear Calc 128.0 Estimated GFR > 60 Random Glucose 113 Lactic Acid Calcium 8.6 D Total Bilirubin AST ALT Alkaline Phosphatase C-Reactive Protein Total Protein Albumin COVID-19 (QUE) COVID-19 Clin Com Imaging right hand x-ray: Radiologist's impression: Impressions Hand X-Ray 01/17/21 12:24 IMPRESSION: Diffuse soft tissue swelling. No x-ray evidence of osteomyelitis or fracture. Hand CT 01/18/21 00:20 IMPRESSION: Peripherally enhancing collection in the dorsal soft tissues extending from the distal forearm to the proximal hand, measuring approximately 3.5 cm in length. Deeper to this abutting the extensor digitorum tendons of the mid hand there is an additional thin collection measuring up to 1.7 cm in length. Appearance is suspicious for abscesses in the setting of surrounding cellulitis. Microbiology Microbiology Results: Microbiology 01/17/21 16:30 Blood Culture - Final Blood - Venous Quality Stroke Does the patient have a stroke diagnosis?: No VTE Prior VTE?: No VTE Risk Level:: Medical - moderate - high VTE Device Contraindication: Treatment Not Indicated VTE Drug Contraindication: N/A - Med Ordered Assessment and Plan (1) Hand swelling: Status: Acute Assessment and Plan: 40-year-old woman presents to the ER with right hand swelling and pain after injection of IV heroin. Right hand circumferential Cellulitis, abscess, rapidly spreading, concern for staph or strep -Continue Vanco and Zosyn D2 -ID consult -to OR for exploration by Ortho -follow cultures -Pain mangement Opiate Dependence Continue Methadone upon verification Addiction Services consult DVT prophylaxis with Lovenox Full code
[2021-01-18] MEDS: Lactated Ringers 1,000 ML 100 ML IVCONT (10:52)
--- NOTE | 2021-01-18 11:09 | MHC.RECOVRN ---
Chart review completed. Attempted to meet with pt, pt asleep. Methadone dose confirmed-[facility] in [place], 40 mg, last dose 01/15 per Natasha Miller, Re [facility]. Case discussed with pts RN as well as Zenaida Talley APRN. Will continue to follow.
--- NOTE | 2021-01-18 11:25 | P.CONAN_ITS ---
[facility] Active Problems Active Problems: All Active Problems (Updated 01/18/21 @ 10:26 by Halley osman RN) Hand swelling (Acute) Abscess of right hand (Acute) Past Medical History Medical History (Updated 01/18/21 @ 10:26 by Halley Williamson RN) Anxiety Asthma Cholecystectomy planned Depression IV drug user Pancreatitis PTSD (post-traumatic stress disorder) Ulcerative colitis Surgical History Surgical History (Updated 01/18/21 @ 10:26 by Halley Williamson RN) Tubal ligation status Social History Social History Household Members: Family Household Members Other:: mother Housing: House Do you presently have visiting nurse or other home services: No Patient Tobacco Use Status: Current everyday Tobacco user Tobacco use type: Cigarette Cigarette Packs Per Day: 1 Cigarettes Per Day: 20.0 Smoked in Last 30 Days: Yes e-Cigarette/Vaping Use: Never Used Patient Interested in Nicotine Replacement: Yes Patient Given Instructions on How to Stop Smoking: Yes Date Education Initiated: 01/18/21 Second Hand Smoke Exposure: Yes Use of substances other than those prescribed or required for medical reasons: No Currently Displaying Signs/Symptoms of Drug Intoxication Withdrawal: No Have you been hit, kicked, punched, or otherwise hurt by someone within the past year? If so, by whom?: No Do you feel safe in your current relationship?: No Current Relationship Is there a partner from a previous relationship who is making you feel unsafe now?: No Are you made to feel afraid or neglected: No Are you DNR?: No Advance Directives: No Advance Directives Information Provided: Yes Do you have thoughts of harming others: None Do you have a plan to hurt others: No Plan Recently lost weight without trying: No How much weight loss: Not applicable Eating poorly because of decreased appetite: No Nutrition screen score: 0 Nutrition Risks: No Nutritional Risk Patient : No : No Poor oral hygiene: No Meds Allergies Allergy/AdvReac Type Severity Reaction Status Date / Time latex [Latex] Allergy Mild RASH,ITCHY Verified 01/18/21 10:27 aspirin [ASA] Allergy Unknown AGGRAVATE Verified 01/18/21 10:28 COLITIS furosemide [Lasix] Allergy Unknown hives Verified 03/12/19 00:00 ketorolac [From TORADOL] Allergy Unknown ANXIETY, Verified 01/18/21 10:27 dizziness metoclopramide [From REGLAN] Allergy Unknown PASSED OUT Verified 01/18/21 10:28 NSAIDS (Non-Steroidal Allergy Unknown AGGRAVATE Verified 01/18/21 10:27 Anti-Inflamma COLITIS [NSAIDS (NON-STEROIDAL ANTI-INFLAMMA] promethazine [From PHENERGAN] Allergy Unknown UNKNOWN Verified 01/18/21 10:27 tramadol [TRAMADOL] Allergy Unknown UNKNOWN Verified 01/18/21 10:27 morphine AdvReac Unknown angry Verified 01/18/21 10:27 trazodone [TRAZODONE] AdvReac Unknown NAUSEA & Verified 01/18/21 10:27 VOMITING From BENADRYL Allergy Unknown SHAKING Uncoded 03/16/20 16:42 Active Medications: Current Medications Generic Name Dose Route Start Last Admin Trade Name Freq PRN Reason Stop Dose Admin Acetaminophen 650 mg 01/17/21 17:50 01/18/21 08:05 Acetaminophen 325 Mg Tablet PO 650 mg Q6H PRN Administration Pain, Mild (Pain Scale 1-3) Enoxaparin Sodium 40 mg 01/17/21 21:00 01/17/21 20:37 Enoxaparin Sodium 40 Mg/0.4 Ml Syringe SUBCUT 40 mg Q24H ROLO Administration Hydromorphone HCl 0.5 mg 01/17/21 17:52 01/18/21 08:42 Hydromorphone Hcl 0.5 Mg/0.5 Ml Syringe IVPUSH 0.5 mg Q4H PRN Administration Pain, Mild (Pain Scale 1-3) Piperacillin Sod/Tazobactam 50 mls @ 100 mls/hr 01/17/21 21:00 01/18/21 08:41 Sod 3.375 gm/ Sodium Chloride IV Infused Q6H ROLO Infusion Vancomycin HCl 1,000 mg/ 270 mls @ 270 mls/hr 01/18/21 00:00 01/18/21 01:22 Sodium Chloride IV Infused Q12H ROLO Infusion Dextrose/Sodium Chloride 1,000 mls @ 80 mls/hr 01/17/21 23:00 01/18/21 11:07 D51/2ns IVCONT Infused .[id number] ROLO Infusion Lorazepam 0.25 mg 01/17/21 18:36 01/17/21 21:47 Lorazepam 0.5 Mg Tablet PO 0.25 mg Q6H PRN Administration anxiety Methadone HCl 40 mg 01/18/21 11:00 Methadone Hcl 1 Mg/0.1 Ml Oral.Conc PO DAILY [facility] Ondansetron HCl 4 mg 01/17/21 17:50 01/18/21 08:42 Ondansetron Hcl 4 Mg/2 Ml Vial IVPUSH 4 mg Q8H PRN Administration Nausea and Vomiting Oxycodone HCl 10 mg 01/17/21 17:52 01/18/21 08:05 Oxycodone Hcl Immed Release 5 Mg Tablet PO 10 mg Q4H PRN Administration Pain, Mild (Pain Scale 1-3) Pharmacy Consult 1 each 01/17/21 17:36 Consult Rx Perform Med Rec MISCELLANE ONCE PRN Consult order Pharmacy Consult 1 each 01/17/21 18:34 Consult Rx Vancomycin Dosing MISCELLANE DAILY PRN Consult order Sodium Chloride 3 ml 01/18/21 00:00 01/18/21 08:04 0.9 % Sodium Chloride Flush 3 Ml Syringe IVFLUSH Not Given QSHIFT [facility] Home Medications Medication Instructions Recorded Confirmed Last Taken Type albuterol sulfate [Ventolin HFA] 2 puff INHALATION TID PRN 01/17/21 01/17/21 Unknown History cyanocobalamin (vitamin B-12) 1,000 mcg PO DAILY 01/17/21 01/17/21 01/16/21 History [Vitamin B-12] fluticasone propion-salmeterol 1 inh INHALATION BID 01/17/21 01/17/21 01/16/21 History [Advair Diskus] methadone [Methadose] 40 mg PO DAILY 01/17/21 01/17/21 01/16/21 History prazosin 1 cap PO BEDTIME 01/17/21 01/17/21 01/16/21 History quetiapine 1 tab PO BEDTIME 01/17/21 01/17/21 01/16/21 History sertraline 1 tab PO DAILY 01/17/21 01/17/21 01/16/21 History Exam Exam Date and Time: January 18, 2021 1125 Height,Weight and Vital Signs: Height 5 ft 5 in Weight 77.2 kg Last Vital Signs Temp 98.3 F 01/18/21 10:30 Pulse 92 01/18/21 10:30 Resp 16 01/18/21 10:30 BP 108/77 01/18/21 10:30 Pulse Ox 96 07/22/21 10:30 Pertinent Lab Results Pertinent Lab Results: Laboratory Tests 01/17/21 01/17/21 01/17/21 12:08 12:08 12:10 WBC 12.9 H RBC 4.34 Hgb 14.3 Hct 42.5 MCV 97.9 MCH 32.9 MCHC 33.6 RDW 13.7 Plt Count 274 MPV 9.8 Immature Gran % (Auto) 0.4 Neut % (Auto) 83.7 H Lymph % (Auto) 8.4 L [place] % (Auto) 7.1 Eos % (Auto) 0.2 Baso % (Auto) 0.2 Lymph # (Auto) 1.1 L [place] # (Auto) 0.9 Eos # (Auto) 0.0 Baso # (Auto) 0.0 Abs Immat Gran (auto) 0.05 H Absolute Neuts (auto) 10.8 H Absolute Nucleated RBC 0.000 Nucleated RBC % (auto) 0.0 ESR 14 Sodium 141 Potassium 3.7 Chloride 104 Carbon Dioxide 25 Anion Gap 16 BUN 13 Creatinine 0.72 Estim Creat Clear Calc 106.6 Estimated GFR > 60 Random Glucose 89 Lactic Acid Calcium 9.4 Total Bilirubin 0.5 AST 12 ALT 8 Alkaline Phosphatase 75 C-Reactive Protein 6.78 H Total Protein 7.2 Albumin 4.4 COVID-19 (QUE) COVID-19 Clin Com 01/17/21 01/17/21 01/18/21 12:10 15:55 08:03 WBC 10.4 RBC 3.94 L Hgb 12.6 Hct 38.1 MCV 96.7 MCH 32.0 MCHC 33.1 RDW 13.4 Plt Count 248 MPV 10.4 Immature Gran % (Auto) 0.4 Neut % (Auto) 76.3 H Lymph % (Auto) 14.3 L [place] % (Auto) 8.0 Eos % (Auto) 0.9 Baso % (Auto) 0.1 Lymph # (Auto) 1.5 [place] # (Auto) 0.8 Eos # (Auto) 0.1 Baso # (Auto) 0.0 Abs Immat Gran (auto) 0.04 H Absolute Neuts (auto) 7.9 Absolute Nucleated RBC 0.000 Nucleated RBC % (auto) 0.0 ESR Sodium Potassium Chloride Carbon Dioxide Anion Gap BUN Creatinine Estim Creat Clear Calc Estimated GFR Random Glucose Lactic Acid 0.7 Calcium Total Bilirubin AST ALT Alkaline Phosphatase C-Reactive Protein Total Protein Albumin COVID-19 (QUE) Negative COVID-19 Clin Com See Note 01/18/21 08:03 WBC RBC Hgb Hct MCV MCH MCHC RDW Plt Count MPV Immature Gran % (Auto) Neut % (Auto) Lymph % (Auto) [place] % (Auto) Eos % (Auto) Baso % (Auto) Lymph # (Auto) [place] # (Auto) Eos # (Auto) Baso # (Auto) Abs Immat Gran (auto) Absolute Neuts (auto) Absolute Nucleated RBC Nucleated RBC % (auto) ESR Sodium 137 Potassium 3.5 Chloride 104 Carbon Dioxide 24 Anion Gap 13 BUN 7 L Creatinine 0.60 Estim Creat Clear Calc 128.0 Estimated GFR > 60 Random Glucose 113 Lactic Acid Calcium 8.6 D Total Bilirubin AST ALT Alkaline Phosphatase C-Reactive Protein Total Protein Albumin COVID-19 (QUE) COVID-19 Clin Com Airway Mallampati Class: II TM Dist: >3cm Neck ROM: Full
--- NOTE | 2021-01-18 12:25 | MHC.CM.PN ---
Addendum entered by Nissa Arguelles RN 01/18/21 15:18: CM ATTEMPTED TO MEET W/PT AGAIN HOWEVER PT REMAINS OFF UNIT AT TIME OF THIS NOTE. Original Note: CM ATTEMPTED TO MEET WITH PT HOWEVER PT IS OFF UNIT FOR I&D OF RIGHT HAND, CM TO RE-APPROACH LATER TODAY.
[2021-01-18] MEDS: fentaNYL citrate/PF 100 MCG/2 ML VIAL 50 MCG IVPUSH ×4 (12:45→13:19)
--- NOTE | 2021-01-18 13:01 | MHC.SHP ---
Pre-Procedural Eval Section A Date of Service: 01/18/21 The patient is an INPATIENT: Yes Changes since office visit: Yes Patient answered all questions; No Cold of Flu in the past 2 weeks, No New Medical Problems and No Changes in Medication The History & Physical has been completed within 30 days and I have reviewed it.: Yes Section B Chief Complaint: cellulitis Allergies: Allergies Allergy/AdvReac Type Severity Reaction Status Date / Time latex [Latex] Allergy Mild RASH,ITCHY Verified 01/18/21 10:27 aspirin [ASA] Allergy Unknown AGGRAVATE Verified 01/18/21 10:28 COLITIS furosemide [Lasix] Allergy Unknown hives Verified 03/12/19 00:00 ketorolac [From TORADOL] Allergy Unknown ANXIETY, Verified 01/18/21 10:27 dizziness metoclopramide [From REGLAN] Allergy Unknown PASSED OUT Verified 01/18/21 10:28 NSAIDS (Non-Steroidal Allergy Unknown AGGRAVATE Verified 01/18/21 10:27 Anti-Inflamma COLITIS [NSAIDS (NON-STEROIDAL ANTI-INFLAMMA] promethazine [From PHENERGAN] Allergy Unknown UNKNOWN Verified 01/18/21 10:27 tramadol [TRAMADOL] Allergy Unknown UNKNOWN Verified 01/18/21 10:27 morphine AdvReac Unknown angry Verified 01/18/21 10:27 trazodone [TRAZODONE] AdvReac Unknown NAUSEA & Verified 01/18/21 10:27 VOMITING From BENADRYL Allergy Unknown SHAKING Uncoded 03/16/20 16:42 Plan I have reviewed the history and physical and performed a pertinent physical examination on my patient. No changes have occurred unless specified.
--- NOTE | 2021-01-18 13:02 | PM.OP ---
Brief Operative Note Date of Service: 01/18/21 Pre-op diagnosis: right hand abcess Post-op diagnosis: same Procedure: I&D right hand Surgeon: Mark Anguiano MD Anesthesia: GETA Was an Clinical Education Assistant used for this Procedure?: No Estimated blood loss (mL): 20 Tourniquet time (min): 20 Pathology: other Condition: stable Disposition: PACU
--- NOTE | 2021-01-18 16:21 | MHC.RECOVRN ---
T/w met with pt after returning to room from OR for I&D of right hand. Upon entering, pt crying, reporting pain. Pt states I know I'm going to feel some pain, I just want a little relief. Pt reports using heroin, IV, 3-5 bundles daily, last use prior to arrival to [facility] [place], 3 bundles. Pt reports drinking alcohol, 6-10 nips daily x 3 years. Denies other substances. Pt began [facility] OTP approx 1 week ago, currently at 40 mg and titrating. Case discussed with pts RN as well as Zenaida Talley APRN. Will continue to follow.
[2021-01-18] MEDS: HYDROmorphone HCl 0.5 MG/0.5 ML SYRINGE 1 MG IVPUSH ×2 (18:12→22:30)
[2021-01-18] MEDS: Enoxaparin Sodium 40 MG/0.4 ML SYRINGE SUBCUT (20:48)
[2021-01-18] MEDS: Prazosin HCL 1 MG CAPSULE 2 MG PO (20:49)
[2021-01-18] MEDS: QUEtiapine Fumarate 50 MG TABLET PO (20:49)
[2021-01-18] MEDS: LORazepam 0.5 MG TABLET 0.25 MG PO (21:13)
[2021-01-19] VITALS (9 sets, daily range): BP systolic 92–107; BP diastolic 52–70; PULSE 67–91; RESP 18–20; TEMP 36.1–36.6; O2SAT 95–97
[2021-01-19] MEDS: ondansetron HCL 4 MG/2 ML VIAL IVPUSH ×3 (00:08→16:57)
--- NOTE | 2021-01-19 00:18 | PM.EVENT ---
Event Note Date of Service: 01/19/21 Event Note: Alcohol withdrawal: Patient reports that he drinks alcohol daily and has multiple admissions in the past for alcohol withdrawal/pancreatitis. Patient reported that she if tolerated phenobarbital in the past. Will keep the patient on phenobarb protocol. Tenosynovitis/cellulitis/abscess: Status post surgery. Patient complains of pain. Patient mentioned that she is allergic to Toradol and NSAIDs; asking for IV pain medications. Patient is already on Dilaudid p.r.n. and methadone. Will give 1 time dose of Dilaudid. Will continue to monitor. Spoke to the RN.
--- NOTE | 2021-01-19 00:22 | PC.NURSE ---
Pt complained that she was in extreme pain and her hand was bothering her. More specifically, her right hand felt tight and her fingers tingling. Nurse did neuro check on hand. Cap reill was less than 3 seconds, finger were pink. and she was able to move them and feel nurse pressure on fingers. Nurse did loosen the jeremi wrap to help patient feel more comfortable. Md came in to see pt. Md ordered and extra dose of pain medication and place patient on phenobarbital protocol.
[2021-01-19] MEDS: HYDROmorphone HCl 1 MG/ML SYRINGE IVPUSH (01:00)
[2021-01-19] MEDS: LORazepam 1 MG TABLET 2 MG PO (01:00)
[2021-01-19 02:21] LABS: Vancomycin Trough < 3.0 mcg/mL (10.0-20.0)
[2021-01-19] MEDS: PHENobarbitaL sodium 130 MG/ML VIAL 230 MG IM (02:27)
[2021-01-19] MEDS: Piperacillin Sodium/Tazobactam 3.375 GM in 0.9 % Sodium Chloride 50 ML IV ×4 (02:27→20:40)
[2021-01-19] MEDS: vancomycin HCL 1,000 MG in 0.9 % Sodium Chloride 250 ML 270 MG IV (03:17)
[2021-01-19] MEDS: HYDROmorphone HCl 0.5 MG/0.5 ML SYRINGE 1 MG IVPUSH ×3 (04:07→12:20)
[2021-01-19] MEDS: PHENobarbitaL sodium 130 MG/ML VIAL 170 MG IM ×2 (06:08→09:32)
[2021-01-19] MEDS: Fluticasone/Vilanterol 100/25 BLST.W.DEV 1 PUFF INHALE (08:00)
[2021-01-19] MEDS: Cyanocobalamin (Vitamin B-12) 1,000 MCG TABLET 1000 MCG PO (08:14)
[2021-01-19] MEDS: 0.9 % Sodium Chloride Flush 3 ML SYRINGE IVFLUSH ×3 (08:14→20:41)
[2021-01-19] MEDS: Sertraline HCL 100 MG TABLET PO (08:15)
[2021-01-19 08:54] LABS: Hematocrit 38.8 % (37-47); Hemoglobin 12.8 g/dl (12.0-16.0); Platelet Count 257 X10*3/uL (160-400); Red Cell Distribution Width 13.2 % (11.0-16.0); White Blood Count 10.8 X10*3/uL (4.8-10.8)
[2021-01-19 09:15] LABS: Anion Gap 13 (12-20); Blood Urea Nitrogen 6 mg/dL (9-16); Calcium 9.2 mg/dL (8.4-10.2); Carbon Dioxide 24 mmol/L (22-29); Chloride 105 mmol/L (96-108); Estimated Glomerular Filt Rate > 60; Glucose Random 124 mg/dL (60-115); Potassium 3.8 mmol/L (3.3-5.1); Sodium 138 mmol/L (135-145)
--- NOTE | 2021-01-19 10:09 | MHC.CM.PN ---
met with pt who is indepdent pt plans on returning home when dcd has own transport
--- NOTE | 2021-01-19 10:39 | HO.POSTANES ---
Post Anesthesia Evaluation Post Anesthesia Evaluation Vital Signs: Vital Signs Temp Pulse Resp BP Pulse Ox 01/19/21 09:35 91 19 102/63 01/19/21 08:13 19 01/19/21 08:02 82 01/19/21 07:41 97.0 F 81 20 92/52 L 97 01/19/21 00:09 18 01/18/21 23:39 97.5 F 102 H 16 110/72 95 Anesthesia: General Mental Status: Awake Pain Control: Satisfactory Nausea/Vomiting: None Hydration: Adequate Anesthesia-Related Issues: No Anes. Related Issues
--- NOTE | 2021-01-19 11:12 | HO.PM.IMPN ---
Subjective Subjective Date of Service: 01/19/21 Interval History: F/u on right hand/arm cellulitis, and abscess, s/p I and D in OR yesterday Review of Systems Gen: no fever Resp: no sob, no cough CV: no chest, no TURPIN, no leg edema GI: No n/v, no abd pain Neuro: No confusion Pain and limitted movment in right arm, hand Physical Exam Vital Signs: Vital Signs: Last Vital Signs Temp 97.0 F 01/19/21 07:41 Pulse 91 01/19/21 09:35 Resp 19 01/19/21 09:35 BP 102/63 01/19/21 09:35 Pulse Ox 97 01/19/21 07:41 Body Mass Index 28.3 Const: Other: General: AO X 3, no acute distress Resp: CTA bilateral CVS: S1,S2,RRR GI: +BS, NT, no distention Skin: No rash Neuro: motor grossly intact Psych: appropriate affect Objective Data Current Medications Generic Name Dose Route Start Last Admin Trade Name Jose Juanq PRN Reason Stop Dose Admin Acetaminophen 650 mg 01/17/21 17:50 01/18/21 08:05 Acetaminophen 325 Mg Tablet PO 650 mg Q6H PRN Administration Pain, Mild (Pain Scale 1-3) Albuterol Sulfate 2 puff 01/18/21 17:58 Albuterol Sulfate 90 Mcg 8 Gm Inhaler INHALE TID PRN Shortness Of Breath Cyanocobalamin 1,000 mcg 01/19/21 09:00 01/19/21 08:14 Cyanocobalamin (Vitamin B-12) 1,000 Mcg Tablet PO 1,000 mcg DAILY ROLO Administration Enoxaparin Sodium 40 mg 01/17/21 21:00 01/18/21 20:48 Enoxaparin Sodium 40 Mg/0.4 Ml Syringe SUBCUT 40 mg Q24H ROLO Administration Fluticasone/Vilanterol 1 puff 01/19/21 08:00 01/19/21 08:00 Fluticasone/Vilanterol 100/25 Blst.W.Dev INHALE 1 puff RDAILY ROLO Administration Hydromorphone HCl 0.5 mg 01/18/21 12:41 01/18/21 14:06 Hydromorphone Hcl 0.5 Mg/0.5 Ml Syringe IVPUSH 0.5 mg Q5M PRN Administration Pain, Severe (Pain Scale 7-10) Hydromorphone HCl 1 mg 01/18/21 17:58 01/19/21 08:13 Hydromorphone Hcl 0.5 Mg/0.5 Ml Syringe IVPUSH 1 mg Q4H PRN Administration Pain, Mild (Pain Scale 1-3) Piperacillin Sod/Tazobactam 50 mls @ 100 mls/hr 01/17/21 21:00 01/19/21 08:52 Sod 3.375 gm/ Sodium Chloride IV Infused Q6H ROLO Infusion Vancomycin HCl 1,500 mg/ 500 mls @ 333.333 mls/hr 01/19/21 15:00 Sodium Chloride IV Q12H ROLO Lorazepam 0.25 mg 01/17/21 18:36 01/18/21 21:13 Lorazepam 0.5 Mg Tablet PO 0.25 mg Q6H PRN Administration anxiety Medication 1 each 01/19/21 09:00 No Benzodiazepines MISCELLANE DAILY ROLO Methadone HCl 40 mg 01/18/21 11:00 01/19/21 08:15 Methadone Hcl 1 Mg/0.1 Ml Oral.Conc PO 40 mg DAILY ROLO Administration Ondansetron HCl 4 mg 01/17/21 17:50 01/19/21 08:13 Ondansetron Hcl 4 Mg/2 Ml Vial IVPUSH 4 mg Q8H PRN Administration Nausea and Vomiting Ondansetron HCl 4 mg 01/18/21 11:26 01/18/21 13:05 Ondansetron Hcl 4 Mg/2 Ml Vial IVPUSH 4 mg ONCE PRN Administration Nausea and Vomiting Oxycodone HCl 10 mg 01/17/21 17:52 01/18/21 20:53 Oxycodone Hcl Immed Release 5 Mg Tablet PO 10 mg Q4H PRN Administration Pain, Mild (Pain Scale 1-3) Pharmacy Consult 1 each 01/17/21 17:36 Consult Rx Perform Med Rec MISCELLANE ONCE PRN Consult order Pharmacy Consult 1 each 01/17/21 18:34 Consult Rx Vancomycin Dosing MISCELLANE DAILY PRN Consult order Phenobarbital 45 mg 01/19/21 21:00 Phenobarbital 15 Mg Tablet PO 01/21/21 09:01 BID ROLO Phenobarbital 15 mg 01/21/21 21:00 Phenobarbital 15 Mg Tablet PO 01/23/21 09:01 BID ROLO Phenobarbital 15 mg 01/24/21 09:00 Phenobarbital 15 Mg Tablet PO 01/25/21 09:01 DAILY ROLO Prazosin HCl 2 mg 01/18/21 21:00 01/18/21 20:49 Prazosin Hcl 1 Mg Capsule PO 2 mg BEDTIME ROLO Administration Protocol Quetiapine Fumarate 50 mg 01/18/21 21:00 01/18/21 20:49 Quetiapine Fumarate 50 Mg Tablet PO 50 mg BEDTIME ROLO Administration Sertraline HCl 100 mg 01/19/21 09:00 01/19/21 08:15 Sertraline Hcl 100 Mg Tablet PO 100 mg DAILY ROLO Administration Sodium Chloride 3 ml 01/18/21 00:00 01/19/21 08:14 0.9 % Sodium Chloride Flush 3 Ml Syringe IVFLUSH 3 ml QSHIFT ROLO Administration Labs CBC & Chem 7: 01/19/21 08:18 01/19/21 08:18 Labs: Laboratory Results - last 24 hr 01/19/21 01/19/21 01/19/21 01:11 08:18 08:18 WBC 10.8 RBC 4.00 L Hgb 12.8 Hct 38.8 MCV 97.0 MCH 32.0 MCHC 33.0 RDW 13.2 Plt Count 257 MPV 10.0 Absolute Nucleated RBC 0.000 Nucleated RBC % (auto) 0.0 Sodium 138 Potassium 3.8 Chloride 105 Carbon Dioxide 24 Anion Gap 13 BUN 6 L Creatinine 0.68 Estim Creat Clear Calc 113.0 Estimated GFR > 60 Random Glucose 124 H Calcium 9.2 D Vancomycin Trough < 3.0 L Microbiology Microbiology Results: Microbiology 01/17/21 Unknown Gram Stain - Final Hand Right Routine Culture - Preliminary Staphylococcus aureus 01/17/21 15:44 Blood Culture - Preliminary Blood - Venous No growth after 24 hours. 01/17/21 12:08 Blood Culture - Preliminary Blood - Venous No growth after 24 hours. 01/17/21 16:30 Blood Culture - Final Blood - Venous Quality Stroke Does the patient have a stroke diagnosis?: No VTE Prior VTE?: No VTE Risk Level:: Medical - moderate - high VTE Device Contraindication: Treatment Not Indicated VTE Drug Contraindication: N/A - Med Ordered Assessment and Plan (1) Hand swelling: Status: Acute Assessment and Plan: 40-year-old woman presents to the ER with right hand swelling and pain after injection of IV heroin. Right hand circumferential Cellulitis, abscess, s/p I and D in OR 01/[address] Anguiano, culture Staph Aureus -Continue Vanco and Zosyn D3, check with ID if we can stop Zosyn -Dressing changes by surgery -follow cultures -Pain mangement with Dilaudid Opiate Dependence Continue Methadone upon verification Addiction Services consult Alcohol Dependency/Withdrawal--continue Phenobarbital DVT prophylaxis with Lovenox Full code
[2021-01-19] MEDS: Acetaminophen 325 MG TABLET 650 MG PO (11:31)
[2021-01-19] MEDS: oxyCODONE HCl Immed Release 5 MG TABLET 10 MG PO ×3 (11:32→19:46)
--- NOTE | 2021-01-19 12:51 | PM.PNORT ---
Progress Note: A&P Assessment and plan (1) Abscess of right hand: Status: Acute Assessment and Plan: cont iv abx cultures grew back staph A. continue daily wound care no need for further surgical intervention at this time will cont to monitor Fall Risk Details Current Medications: Current Medications Generic Name Dose Route Start Last Admin Trade Name Freq PRN Reason Stop Dose Admin Acetaminophen 650 mg 01/17/21 17:50 01/19/21 11:31 Acetaminophen 325 Mg Tablet PO 650 mg Q6H PRN Administration Pain, Mild (Pain Scale 1-3) Albuterol Sulfate 2 puff 01/18/21 17:58 Albuterol Sulfate 90 Mcg 8 Gm Inhaler INHALE TID PRN Shortness Of Breath Cyanocobalamin 1,000 mcg 01/19/21 09:00 01/19/21 08:14 Cyanocobalamin (Vitamin B-12) 1,000 Mcg Tablet PO 1,000 mcg DAILY ROLO Administration Enoxaparin Sodium 40 mg 01/17/21 21:00 01/18/21 20:48 Enoxaparin Sodium 40 Mg/0.4 Ml Syringe SUBCUT 40 mg Q24H ROLO Administration Fluticasone/Vilanterol 1 puff 01/19/21 08:00 01/19/21 08:00 Fluticasone/Vilanterol 100/25 Blst.W.Dev INHALE 1 puff RDAILY ROLO Administration Hydromorphone HCl 0.5 mg 01/18/21 12:41 01/18/21 14:06 Hydromorphone Hcl 0.5 Mg/0.5 Ml Syringe IVPUSH 0.5 mg Q5M PRN Administration Pain, Severe (Pain Scale 7-10) Hydromorphone HCl 1.5 mg 01/19/21 12:32 Hydromorphone Hcl 2 Mg/Ml Vial IVPUSH Q4H PRN Pain, Mild (Pain Scale 1-3) Piperacillin Sod/Tazobactam 50 mls @ 100 mls/hr 01/17/21 21:00 01/19/21 08:52 Sod 3.375 gm/ Sodium Chloride IV Infused Q6H ROLO Infusion Vancomycin HCl 1,500 mg/ 500 mls @ 333.333 mls/hr 01/19/21 15:00 Sodium Chloride IV Q12H ROLO Lorazepam 0.25 mg 01/17/21 18:36 01/18/21 21:13 Lorazepam 0.5 Mg Tablet PO 0.25 mg Q6H PRN Administration anxiety Medication 1 each 01/19/21 09:00 No Benzodiazepines MISCELLANE DAILY ROLO Methadone HCl 40 mg 01/18/21 11:00 01/19/21 08:15 Methadone Hcl 1 Mg/0.1 Ml Oral.Conc PO 40 mg DAILY ROLO Administration Ondansetron HCl 4 mg 01/17/21 17:50 01/19/21 08:13 Ondansetron Hcl 4 Mg/2 Ml Vial IVPUSH 4 mg Q8H PRN Administration Nausea and Vomiting Ondansetron HCl 4 mg 01/18/21 11:26 01/18/21 13:05 Ondansetron Hcl 4 Mg/2 Ml Vial IVPUSH 4 mg ONCE PRN Administration Nausea and Vomiting Oxycodone HCl 10 mg 01/17/21 17:52 01/19/21 11:32 Oxycodone Hcl Immed Release 5 Mg Tablet PO 10 mg Q4H PRN Administration Pain, Mild (Pain Scale 1-3) Pharmacy Consult 1 each 01/17/21 17:36 Consult Rx Perform Med Rec MISCELLANE ONCE PRN Consult order Pharmacy Consult 1 each 01/17/21 18:34 Consult Rx Vancomycin Dosing MISCELLANE DAILY PRN Consult order Phenobarbital 45 mg 01/19/21 21:00 Phenobarbital 15 Mg Tablet PO 01/21/21 09:01 BID ROLO Phenobarbital 15 mg 01/21/21 21:00 Phenobarbital 15 Mg Tablet PO 01/23/21 09:01 BID ROLO Phenobarbital 15 mg 01/24/21 09:00 Phenobarbital 15 Mg Tablet PO 01/25/21 09:01 DAILY ROLO Prazosin HCl 2 mg 01/18/21 21:00 01/18/21 20:49 Prazosin Hcl 1 Mg Capsule PO 2 mg BEDTIME ROLO Administration Protocol Quetiapine Fumarate 50 mg 01/18/21 21:00 01/18/21 20:49 Quetiapine Fumarate 50 Mg Tablet PO 50 mg BEDTIME ROLO Administration Sertraline HCl 100 mg 01/19/21 09:00 01/19/21 08:15 Sertraline Hcl 100 Mg Tablet PO 100 mg DAILY ROLO Administration Sodium Chloride 3 ml 01/18/21 00:00 01/19/21 08:14 0.9 % Sodium Chloride Flush 3 Ml Syringe IVFLUSH 3 ml QSHIFT ROLO Administration Time Spent With Patient Time: Total time spent is greater than 50% in coordination of care (as documented) at patient's floor/unit and/or counseling patient: Time with patient: 15 - 24 minutes Subjective Subjective Date of Service: 01/19/21 Interval history: POD 1 s/p I&D right wrist No overnight events patient c/o pain in the wrist and numbness in index finger Physical Exam Vital Signs: Vital Signs: Last Vital Signs Temp 97.0 F 01/19/21 07:41 Pulse 91 01/19/21 09:35 Resp 19 01/19/21 09:35 BP 102/63 01/19/21 09:35 Pulse Ox 97 01/19/21 07:41 Body Mass Index 28.3 Const: General: cooperative, healthy appearing and no acute distress Resp: Effort & Inspection: normal respiratory effort and able to speak in complete sentences Cardio: Rate: regular rate Peripheral pulses: Peripheral pulses 2+ throughout GI: Palpation (GI): Soft to palpation Skin: General skin exam: no rashes or lesions noted Extrem: Other: Right wrist packing intact- removed at bedside swelling and tenderness around the dorum of the wrist and into the hand. Fingers are less contracted and less swollen. She is abl eto full extend and partially flex fingers. Decreased sensation at the tip of the index finger. good cap refill. Procedures Date of Service Date of Service: 01/19/21 Quality Stroke Does the patient have a stroke diagnosis?: No VTE Prior VTE?: No VTE Risk Level:: Medical - moderate - high VTE Device Contraindication: Treatment Not Indicated VTE Drug Contraindication: N/A - Med Ordered
--- NOTE | 2021-01-19 13:33 | HO.ADDICTCON ---
History of Present Illness Date of Service: 01/19/2021 Chief Complaint: cellulitis Reason for Consult: OUD Requesting physician: Flaco Raymond Discussed with referring provider: Yes Sources of Information: patient interviewed and chart reviewed HPI Narrative: patient is a 40 year old female with OUD currently medically admitted with right hand cellulitis secondary to IVDU. Patient currently on methadone treatment via [facility] in [place] and dose verified at 40mg QD.. She reports she has been in treatment there approx 2 weeks. patient reports she is using about 3 bundles of heroin QD and several nips every day as well. Patient tearful in giving history as she was experiencing significant pain and discomfort following recent I&D Past Psychiatric History: not reviewed Medical Evaluation Reviewed: Yes Review of Systems Constitutional: Reports as per HPI Diagnostics Vital Signs (24Hr): Vital Signs - 24 hr 01/18/21 13:45 01/18/21 14:00 01/18/21 14:06 Temperature Pulse Rate 76 79 67 Respiratory Rate 18 16 18 Blood Pressure 140/89 H 131/86 134/82 Pulse Oximetry 98 98 98 01/18/21 14:15 01/18/21 15:42 01/18/21 18:12 Temperature 97.4 F Pulse Rate 88 70 Respiratory Rate 18 16 19 Blood Pressure 114/61 127/74 Pulse Oximetry 99 94 01/18/21 20:49 01/18/21 23:39 01/19/21 00:09 Temperature 97.5 F Pulse Rate 70 102 H Respiratory Rate 16 18 Blood Pressure 127/74 110/72 Pulse Oximetry 95 01/19/21 07:41 01/19/21 08:02 01/19/21 08:13 Temperature 97.0 F Pulse Rate 81 82 Respiratory Rate 20 19 Blood Pressure 92/52 L Pulse Oximetry 97 01/19/21 09:35 Temperature Pulse Rate 91 Respiratory Rate 19 Blood Pressure 102/63 Pulse Oximetry Body Mass Index 28.3 Labs Results: 01/19/21 08:18 01/19/21 08:18 Labs: Laboratory Results - last 48 hr 01/17/21 01/18/21 01/18/21 15:55 08:03 08:03 WBC 10.4 RBC 3.94 L Hgb 12.6 Hct 38.1 MCV 96.7 MCH 32.0 MCHC 33.1 RDW 13.4 Plt Count 248 MPV 10.4 Immature Gran % (Auto) 0.4 Neut % (Auto) 76.3 H Lymph % (Auto) 14.[address] [place] % (Auto) 8.0 Eos % (Auto) 0.9 Baso % (Auto) 0.1 Lymph # (Auto) 1.5 [facility] # (Auto) 0.8 Eos # (Auto) 0.1 Baso # (Auto) 0.0 Abs Immat Gran (auto) 0.04 H Absolute Neuts (auto) 7.9 Absolute Nucleated RBC 0.000 Nucleated RBC % (auto) 0.0 Sodium 137 Potassium 3.5 Chloride 104 Carbon Dioxide 24 Anion Gap 13 BUN 7 L Creatinine 0.60 Estim Creat Clear Calc 128.0 Estimated GFR > 60 Random Glucose 113 Calcium 8.6 D Vancomycin Trough COVID-19 (QUE) Negative COVID-19 Clin Com See Note 01/19/21 01/19/21 01/19/21 01:11 08:18 08:18 WBC 10.8 RBC 4.00 L Hgb 12.8 Hct 38.8 MCV 97.0 MCH 32.0 MCHC 33.0 RDW 13.2 Plt Count 257 MPV 10.0 Immature Gran % (Auto) Neut % (Auto) Lymph % (Auto) [facility] [place] [facility] % (Auto) Eos % (Auto) Baso % (Auto) Lymph # (Auto) [facility] # (Auto) Eos # (Auto) Baso # (Auto) Abs Immat Gran (auto) Absolute Neuts (auto) Absolute Nucleated RBC 0.000 Nucleated RBC % (auto) 0.0 Sodium 138 Potassium 3.8 Chloride 105 Carbon Dioxide 24 Anion Gap 13 BUN 6 L Creatinine 0.68 Estim Creat Clear Calc 113.0 Estimated GFR > 60 Random Glucose 124 H Calcium 9.2 D Vancomycin Trough < 3.0 L COVID-19 (QUE) COVID-19 Clin Com Imaging Radiology Impressions: ITS Impressions Hand X-Ray 01/17/21 12:24 IMPRESSION: Diffuse soft tissue swelling. No x-ray evidence of osteomyelitis or fracture. Hand CT 01/18/21 00:20 IMPRESSION: Peripherally enhancing collection in the dorsal soft tissues extending from the distal forearm to the proximal hand, measuring approximately 3.5 cm in length. Deeper to this abutting the extensor digitorum tendons of the mid hand there is an additional thin collection measuring up to 1.7 cm in length. Appearance is suspicious for abscesses in the setting of surrounding cellulitis. Mental Status Exam Mental Status Exam Patient Appearance: Appropriate Patient Orientation: Person, Place, Time and Situation Level of Consciousness: Awake and Alert Patient Behavior: Appropriate and Crying Mood Description: Anxious Affect Description: Anxious Patient Cognition Impaired: No Ability to Follow Directions: Excellent Speech Pattern: Clear Thought Process: Goal Oriented Thought Content: positive for Goal Oriented Judgement: Fair Medications Medications Current Medications Generic Name Dose Route Start Last Admin Trade Name Freq PRN Reason Stop Dose Admin Acetaminophen 650 mg 01/17/21 17:50 01/19/21 11:31 Acetaminophen 325 Mg Tablet PO 650 mg Q6H PRN Administration Pain, Mild (Pain Scale 1-3) Albuterol Sulfate 2 puff 01/18/21 17:58 Albuterol Sulfate 90 Mcg 8 Gm Inhaler INHALE TID PRN Shortness Of Breath Cyanocobalamin 1,000 mcg 01/19/21 09:00 01/19/21 08:14 Cyanocobalamin (Vitamin B-12) 1,000 Mcg Tablet PO 1,000 mcg DAILY ROLO Administration Enoxaparin Sodium 40 mg 01/17/21 21:00 01/18/21 20:48 Enoxaparin Sodium 40 Mg/0.4 Ml Syringe SUBCUT 40 mg Q24H ROLO Administration Fluticasone/Vilanterol 1 puff 01/19/21 08:00 01/19/21 08:00 Fluticasone/Vilanterol 100/25 Blst.W.Dev INHALE 1 puff RDAILY ROLO Administration Hydromorphone HCl 0.5 mg 01/18/21 12:41 01/18/21 14:06 Hydromorphone Hcl 0.5 Mg/0.5 Ml Syringe IVPUSH 0.5 mg Q5M PRN Administration Pain, Severe (Pain Scale 7-10) Hydromorphone HCl 1.5 mg 01/19/21 12:32 Hydromorphone Hcl 2 Mg/Ml Vial IVPUSH Q4H PRN Pain, Mild (Pain Scale 1-3) Piperacillin Sod/Tazobactam 50 mls @ 100 mls/hr 01/17/21 21:00 01/19/21 08:52 Sod 3.375 gm/ Sodium Chloride IV Infused Q6H ROLO Infusion Vancomycin HCl 1,500 mg/ 500 mls @ 333.333 mls/hr 01/19/21 15:00 Sodium Chloride IV Q12H ROLO Lorazepam 0.25 mg 01/17/21 18:36 01/18/21 21:13 Lorazepam 0.5 Mg Tablet PO 0.25 mg Q6H PRN Administration anxiety Medication 1 each 01/19/21 09:00 No Benzodiazepines MISCELLANE DAILY ROLO Methadone HCl 40 mg 01/18/21 11:00 01/19/21 08:15 Methadone Hcl 1 Mg/0.1 Ml Oral.Conc PO 40 mg DAILY ROLO Administration Ondansetron HCl 4 mg 01/17/21 17:50 01/19/21 08:13 Ondansetron Hcl 4 Mg/2 Ml Vial IVPUSH 4 mg Q8H PRN Administration Nausea and Vomiting Ondansetron HCl 4 mg 01/18/21 11:26 01/18/21 13:05 Ondansetron Hcl 4 Mg/2 Ml Vial IVPUSH 4 mg ONCE PRN Administration Nausea and Vomiting Oxycodone HCl 10 mg 01/17/21 17:52 01/19/21 11:32 Oxycodone Hcl Immed Release 5 Mg Tablet PO 10 mg Q4H PRN Administration Pain, Mild (Pain Scale 1-3) Pharmacy Consult 1 each 01/17/21 17:36 Consult Rx Perform Med Rec MISCELLANE ONCE PRN Consult order Pharmacy Consult 1 each 01/17/21 18:34 Consult Rx Vancomycin Dosing MISCELLANE DAILY PRN Consult order Phenobarbital 45 mg 01/19/21 21:00 Phenobarbital 15 Mg Tablet PO 01/21/21 09:01 BID ROLO Phenobarbital 15 mg 01/21/21 21:00 Phenobarbital 15 Mg Tablet PO 01/23/21 09:01 BID ROLO Phenobarbital 15 mg 01/24/21 09:00 Phenobarbital 15 Mg Tablet PO 01/25/21 09:01 DAILY ROLO Prazosin HCl 2 mg 01/18/21 21:00 01/18/21 20:49 Prazosin Hcl 1 Mg Capsule PO 2 mg BEDTIME ROLO Administration Protocol Quetiapine Fumarate 50 mg 01/18/21 21:00 01/18/21 20:49 Quetiapine Fumarate 50 Mg Tablet PO 50 mg BEDTIME ROLO Administration Sertraline HCl 100 mg 01/19/21 09:00 01/19/21 08:15 Sertraline Hcl 100 Mg Tablet PO 100 mg DAILY ROLO Administration Sodium Chloride 3 ml 01/18/21 00:00 01/19/21 08:14 0.9 % Sodium Chloride Flush 3 Ml Syringe IVFLUSH 3 ml QSHIFT ROLO Administration Allergies Allergies Allergy/AdvReac Type Severity Reaction Status Date / Time latex [Latex] Allergy Mild RASH,ITCHY Verified 01/18/21 10:27 aspirin [ASA] Allergy Unknown AGGRAVATE Verified 01/18/21 10:28 COLITIS furosemide [Lasix] Allergy Unknown hives Verified 03/12/19 00:00 ketorolac [From TORADOL] Allergy Unknown ANXIETY, Verified 01/18/21 10:27 dizziness metoclopramide [From REGLAN] Allergy Unknown PASSED OUT Verified 01/18/21 10:28 NSAIDS (Non-Steroidal Allergy Unknown AGGRAVATE Verified 01/18/21 10:27 Anti-Inflamma COLITIS [NSAIDS (NON-STEROIDAL ANTI-INFLAMMA] promethazine [From PHENERGAN] Allergy Unknown UNKNOWN Verified 01/18/21 10:27 tramadol [TRAMADOL] Allergy Unknown UNKNOWN Verified 01/18/21 10:27 morphine AdvReac Unknown angry Verified 01/18/21 10:27 trazodone [TRAZODONE] AdvReac Unknown NAUSEA & Verified 01/18/21 10:27 VOMITING From BENADRYL Allergy Unknown SHAKING Uncoded 03/16/20 16:42 Assessment & Plan Assessment & Plan (1) Opioid use disorder: Status: Acute Code(s): F11.99 - Opioid use, unspecified with unspecified opioid-induced disorder Recommendations: methadone already ordered discussed case with provider and RN. based on patients opioid tolerance she will likely require higher doses of opioids to manage pain (in addition to methadone). doses are increased continue to monitor for over sedation and respiratory depression 45 minutes spent with patient and coordinating care Greater than 50% of the session was spent on counseling and/or coordination of care PMFSH Past Medical History Medical History (Updated 01/19/21 @ 13:52 by Zenaida Talley CNP) Anxiety Asthma Cholecystectomy planned Depression IV drug user Pancreatitis PTSD (post-traumatic stress disorder) Ulcerative colitis Surgical History Surgical History (Updated 01/18/21 @ 10:26 by Halley Williamson RN) Tubal ligation status Social History Social History Household Members: Family Household Members Other:: mother Housing: House Do you presently have visiting nurse or other home services: No Patient Tobacco Use Status: Current everyday Tobacco user Tobacco use type: Cigarette Cigarette Packs Per Day: 1 Cigarettes Per Day: 20.0 Smoked in Last 30 Days: Yes e-Cigarette/Vaping Use: Never Used Patient Interested in Nicotine Replacement: Yes Patient Given Instructions on How to Stop Smoking: Yes Date Education Initiated: 01/18/21 Second Hand Smoke Exposure: Yes Use of substances other than those prescribed or required for medical reasons: No Currently Displaying Signs/Symptoms of Drug Intoxication Withdrawal: No Have you been hit, kicked, punched, or otherwise hurt by someone within the past year? If so, by whom?: No Do you feel safe in your current relationship?: No Current Relationship Is there a partner from a previous relationship who is making you feel unsafe now?: No Are you made to feel afraid or neglected: No Are you DNR?: No Advance Directives: No Advance Directives Information Provided: Yes Do you have thoughts of harming others: None Do you have a plan to hurt others: No Plan Recently lost weight without trying: No How much weight loss: Not applicable Eating poorly because of decreased appetite: No Nutrition screen score: 0 Nutrition Risks: No Nutritional Risk Patient : No : No Poor oral hygiene: No service: No
[2021-01-19] MEDS: HYDROmorphone HCl 2 MG/ML VIAL 1.5 MG IVPUSH ×3 (13:36→22:01)
--- NOTE | 2021-01-19 13:49 | W.PM.IDCN ---
History of Present Illness Data of Consult Service Date: 01/19/21 Requesting physician: Flaco Raymond Primary Care Provider: Hillary Her MD HPI Reason for consult: right hand infection She comes in with right arm pain and swelling. She has injected heroin into right arm day before She has heat and pain Review of Systems Review of Systems: Yes all other systems are reviewed and are negative PMFSH Past Medical History Medical History Anxiety Asthma Cholecystectomy planned Depression IV drug user Pancreatitis PTSD (post-traumatic stress disorder) Ulcerative colitis Family History Family history: reviewed and not pertinent Surgical History Surgical History Tubal ligation status Social History Social History Household Members: Family Household Members Other:: mother Housing: House Do you presently have visiting nurse or other home services: No Patient Tobacco Use Status: Current everyday Tobacco user Tobacco use type: Cigarette Cigarette Packs Per Day: 1 Cigarettes Per Day: 20.0 Smoked in Last 30 Days: Yes e-Cigarette/Vaping Use: Never Used Patient Interested in Nicotine Replacement: Yes Patient Given Instructions on How to Stop Smoking: Yes Date Education Initiated: 01/18/21 Second Hand Smoke Exposure: Yes Use of substances other than those prescribed or required for medical reasons: No Currently Displaying Signs/Symptoms of Drug Intoxication Withdrawal: No Have you been hit, kicked, punched, or otherwise hurt by someone within the past year? If so, by whom?: No Do you feel safe in your current relationship?: No Current Relationship Is there a partner from a previous relationship who is making you feel unsafe now?: No Are you made to feel afraid or neglected: No Are you DNR?: No Advance Directives: No Advance Directives Information Provided: Yes Do you have thoughts of harming others: None Do you have a plan to hurt others: No Plan Recently lost weight without trying: No How much weight loss: Not applicable Eating poorly because of decreased appetite: No Nutrition screen score: 0 Nutrition Risks: No Nutritional Risk Patient : No : No Poor oral hygiene: No service: No Meds Allergies Allergy/AdvReac Type Severity Reaction Status Date / Time latex [Latex] Allergy Mild RASH,ITCHY Verified 01/18/21 10:27 aspirin [ASA] Allergy Unknown AGGRAVATE Verified 01/18/21 10:28 COLITIS furosemide [Lasix] Allergy Unknown hives Verified 03/12/19 00:00 ketorolac [From TORADOL] Allergy Unknown ANXIETY, Verified 01/18/21 10:27 dizziness metoclopramide [From REGLAN] Allergy Unknown PASSED OUT Verified 01/18/21 10:28 NSAIDS (Non-Steroidal Allergy Unknown AGGRAVATE Verified 01/18/21 10:27 Anti-Inflamma COLITIS [NSAIDS (NON-STEROIDAL ANTI-INFLAMMA] promethazine [From PHENERGAN] Allergy Unknown UNKNOWN Verified 01/18/21 10:27 tramadol [TRAMADOL] Allergy Unknown UNKNOWN Verified 01/18/21 10:27 morphine AdvReac Unknown angry Verified 01/18/21 10:27 trazodone [TRAZODONE] AdvReac Unknown NAUSEA & Verified 01/18/21 10:27 VOMITING From BENADRYL Allergy Unknown SHAKING Uncoded 03/16/20 16:42 Active Medications: Current Medications Generic Name Dose Route Start Last Admin Trade Name Freq PRN Reason Stop Dose Admin Acetaminophen 650 mg 01/17/21 17:50 01/19/21 11:31 Acetaminophen 325 Mg Tablet PO 650 mg Q6H PRN Administration Pain, Mild (Pain Scale 1-3) Albuterol Sulfate 2 puff 01/18/21 17:58 Albuterol Sulfate 90 Mcg 8 Gm Inhaler INHALE TID PRN Shortness Of Breath Cyanocobalamin 1,000 mcg 01/19/21 09:00 01/19/21 08:14 Cyanocobalamin (Vitamin B-12) 1,000 Mcg Tablet PO 1,000 mcg DAILY ROLO Administration Enoxaparin Sodium 40 mg 01/17/21 21:00 01/18/21 20:48 Enoxaparin Sodium 40 Mg/0.4 Ml Syringe SUBCUT 40 mg Q24H ROLO Administration Fluticasone/Vilanterol 1 puff 01/19/21 08:00 01/19/21 08:00 Fluticasone/Vilanterol 100/25 Blst.W.Dev INHALE 1 puff RDAILY ROLO Administration Hydromorphone HCl 0.5 mg 01/18/21 12:41 01/18/21 14:06 Hydromorphone Hcl 0.5 Mg/0.5 Ml Syringe IVPUSH 0.5 mg Q5M PRN Administration Pain, Severe (Pain Scale 7-10) Hydromorphone HCl 1.5 mg 01/19/21 12:32 01/19/21 13:36 Hydromorphone Hcl 2 Mg/Ml Vial IVPUSH 1.5 mg Q4H PRN Administration Pain, Mild (Pain Scale 1-3) Piperacillin Sod/Tazobactam 50 mls @ 100 mls/hr 01/17/21 21:00 01/19/21 08:52 Sod 3.375 gm/ Sodium Chloride IV Infused Q6H ROLO Infusion Vancomycin HCl 1,500 mg/ 500 mls @ 333.333 mls/hr 01/19/21 15:00 Sodium Chloride IV Q12H ROLO Lorazepam 0.25 mg 01/17/21 18:36 01/18/21 21:13 Lorazepam 0.5 Mg Tablet PO 0.25 mg Q6H PRN Administration anxiety Medication 1 each 01/19/21 09:00 No Benzodiazepines MISCELLANE DAILY ROLO Methadone HCl 40 mg 01/18/21 11:00 01/19/21 08:15 Methadone Hcl 1 Mg/0.1 Ml Oral.Conc PO 40 mg DAILY ROLO Administration Ondansetron HCl 4 mg 01/17/21 17:50 01/19/21 08:13 Ondansetron Hcl 4 Mg/2 Ml Vial IVPUSH 4 mg Q8H PRN Administration Nausea and Vomiting Ondansetron HCl 4 mg 01/18/21 11:26 01/18/21 13:05 Ondansetron Hcl 4 Mg/2 Ml Vial IVPUSH 4 mg ONCE PRN Administration Nausea and Vomiting Oxycodone HCl 10 mg 01/17/21 17:52 01/19/21 11:32 Oxycodone Hcl Immed Release 5 Mg Tablet PO 10 mg Q4H PRN Administration Pain, Mild (Pain Scale 1-3) Pharmacy Consult 1 each 01/17/21 17:36 Consult Rx Perform Med Rec MISCELLANE ONCE PRN Consult order Pharmacy Consult 1 each 01/17/21 18:34 Consult Rx Vancomycin Dosing MISCELLANE DAILY PRN Consult order Phenobarbital 45 mg 01/19/21 21:00 Phenobarbital 15 Mg Tablet PO 01/21/21 09:01 BID ROLO Phenobarbital 15 mg 01/21/21 21:00 Phenobarbital 15 Mg Tablet PO 01/23/21 09:01 BID ROLO Phenobarbital 15 mg 01/24/21 09:00 Phenobarbital 15 Mg Tablet PO 01/25/21 09:01 DAILY ROLO Prazosin HCl 2 mg 01/18/21 21:00 01/18/21 20:49 Prazosin Hcl 1 Mg Capsule PO 2 mg BEDTIME ROLO Administration Protocol Quetiapine Fumarate 50 mg 01/18/21 21:00 01/18/21 20:49 Quetiapine Fumarate 50 Mg Tablet PO 50 mg BEDTIME ROLO Administration Sertraline HCl 100 mg 01/19/21 09:00 01/19/21 08:15 Sertraline Hcl 100 Mg Tablet PO 100 mg DAILY ROLO Administration Sodium Chloride 3 ml 01/18/21 00:00 01/19/21 08:14 0.9 % Sodium Chloride Flush 3 Ml Syringe IVFLUSH 3 ml QSHIFT ROLO Administration Home Medications Medication Instructions Recorded Confirmed Last Taken Type albuterol sulfate [Ventolin HFA] 2 puff INHALATION TID PRN 01/17/21 01/17/21 Unknown History cyanocobalamin (vitamin B-12) 1,000 mcg PO DAILY 01/17/21 01/17/21 01/16/21 History [Vitamin B-12] fluticasone propion-salmeterol 1 inh INHALATION BID 01/17/21 01/17/21 01/16/21 History [Advair Diskus] methadone [Methadose] 40 mg PO DAILY 01/17/21 01/17/21 01/16/21 History prazosin 1 cap PO BEDTIME 01/17/21 01/17/21 01/16/21 History quetiapine 1 tab PO BEDTIME 01/17/21 01/17/21 01/16/21 History sertraline 1 tab PO DAILY 01/17/21 01/17/21 01/16/21 History Physical Exam Vital Signs: Vital Signs: Last Vital Signs Temp 97.0 F 01/19/21 07:41 Pulse 91 01/19/21 09:35 Resp 19 01/19/21 13:36 BP 102/63 01/19/21 09:35 Pulse Ox 97 01/19/21 07:41 Body Mass Index 28.3 Const: General: cooperative HENMT: Head: Yes normal to inspection Mouth: Normal oral and palatal mucosa present Resp: Effort & Inspection: normal respiratory effort Cardio: Rate: regular rate Rhythm: regular rhythm GI: Palpation (GI): Soft to palpation and nontender Skin: General skin exam: no rashes or lesions noted Extrem: Other: right arm swelling Results Labs CBC & Chem 7: 01/19/21 08:18 01/19/21 08:18 Labs: Short CBC 01/19/21 Range/Units 08:18 WBC 10.8 (4.8-10.8) X10*3/uL Hgb 12.8 (12.0-16.0) g/dl Hct 38.8 (37-47) % Plt Count 257 (160-400) X10*3/uL BMP 01/19/21 08:18 Sodium 138 Potassium 3.8 Chloride 105 Carbon Dioxide 24 BUN 6 L Creatinine 0.68 Calcium 9.2 D Microbiology Microbiology Results: Microbiology 01/17/21 Unknown Hand Right Gram Stain - Final 01/17/21 Unknown Hand Right Routine Culture - Preliminary Staphylococcus aureus 01/17/21 15:44 Blood - Venous Blood Culture - Preliminary No growth after 24 hours. 01/17/21 12:08 Blood - Venous Blood Culture - Preliminary No growth after 24 hours. 01/17/21 16:30 Blood - Venous Blood Culture - Final Assessment and Plan (1) Opioid use disorder: Status: Acute (2) Hand swelling: Status: Acute (3) Abscess of right hand: Status: Acute She has staph aureus hand This could be MRSA She has no bacteremia This is due to IVDU Suggest Would continue Vancomycin Await culture and sensitivity from hand and since no osteomyelitis likely would probably give po Doxycycline or Bactrim for 7-10 days on discharge Check HIV and Hepatitis C She is getting addiction services
[2021-01-19] MEDS: vancomycin HCL 1,500 MG in 0.9 % Sodium Chloride 500 ML 333.33 MG IV (15:38)
[2021-01-19] MEDS: PHENobarbitaL 15 MG TABLET 45 MG PO (20:40)
[2021-01-19] MEDS: Prazosin HCL 1 MG CAPSULE 2 MG PO (20:41)
[2021-01-19] MEDS: QUEtiapine Fumarate 50 MG TABLET PO (20:41)
[2021-01-19] MEDS: Enoxaparin Sodium 40 MG/0.4 ML SYRINGE SUBCUT (20:48)
[2021-01-20] VITALS: BP 100/61; PULSE 73; RESP 16; TEMP 36.3; O2SAT 97
[2021-01-20] MEDS: HYDROmorphone HCl 2 MG/ML VIAL 1.5 MG IVPUSH ×5 (02:07→22:53)
[2021-01-20] MEDS: Piperacillin Sodium/Tazobactam 3.375 GM in 0.9 % Sodium Chloride 50 ML IV (02:48)
[2021-01-20 03:08] LABS: Vancomycin Trough 10.5 mcg/mL (10.0-20.0)
[2021-01-20] MEDS: vancomycin HCL 1,500 MG in 0.9 % Sodium Chloride 500 ML 333.33 MG IV ×2 (03:21→14:25)
[2021-01-20] MEDS: oxyCODONE HCl Immed Release 5 MG TABLET 10 MG PO ×4 (05:04→19:51)
[2021-01-20] MEDS: Fluticasone/Vilanterol 100/25 BLST.W.DEV 1 PUFF INHALE (07:39)
[2021-01-20 07:41] VITALS: PULSE 64; O2SAT 98
[2021-01-20 07:50] VITALS: BP 109/65; PULSE 65; RESP 18; TEMP 36.2; O2SAT 96
[2021-01-20] MEDS: 0.9 % Sodium Chloride Flush 3 ML SYRINGE IVFLUSH ×2 (08:03→20:54)
[2021-01-20] MEDS: PHENobarbitaL 15 MG TABLET 45 MG PO ×2 (08:03→20:54)
[2021-01-20] MEDS: Sertraline HCL 100 MG TABLET PO (08:03)
[2021-01-20] MEDS: Cyanocobalamin (Vitamin B-12) 1,000 MCG TABLET 1000 MCG PO (08:03)
--- NOTE | 2021-01-20 08:57 | PM.PNORT ---
Progress Note: A&P Assessment and plan (1) Abscess of right hand: Status: Acute Assessment and Plan: no restrictions wound care f/u for suture removal is 7-10 d (2) Opioid use disorder: Status: Acute Fall Risk Details Current Medications: Current Medications Generic Name Dose Route Start Last Admin Trade Name Freq PRN Reason Stop Dose Admin Acetaminophen 650 mg 01/17/21 17:50 01/19/21 11:31 Acetaminophen 325 Mg Tablet PO 650 mg Q6H PRN Administration Pain, Mild (Pain Scale 1-3) Albuterol Sulfate 2 puff 01/18/21 17:58 Albuterol Sulfate 90 Mcg 8 Gm Inhaler INHALE TID PRN Shortness Of Breath Cyanocobalamin 1,000 mcg 01/19/21 09:00 01/20/21 08:03 Cyanocobalamin (Vitamin B-12) 1,000 Mcg Tablet PO 1,000 mcg DAILY ROLO Administration Enoxaparin Sodium 40 mg 01/17/21 21:00 01/19/21 20:48 Enoxaparin Sodium 40 Mg/0.4 Ml Syringe SUBCUT 40 mg Q24H ROLO Administration Fluticasone/Vilanterol 1 puff 01/19/21 08:00 01/20/21 07:39 Fluticasone/Vilanterol 100/25 Blst.W.Dev INHALE 1 puff RDAILY ROLO Administration Hydromorphone HCl 0.5 mg 01/18/21 12:41 01/18/21 14:06 Hydromorphone Hcl 0.5 Mg/0.5 Ml Syringe IVPUSH 0.5 mg Q5M PRN Administration Pain, Severe (Pain Scale 7-10) Hydromorphone HCl 1.5 mg 01/19/21 12:32 01/20/21 06:26 Hydromorphone Hcl 2 Mg/Ml Vial IVPUSH 1.5 mg Q4H PRN Administration Pain, Mild (Pain Scale 1-3) Vancomycin HCl 1,500 mg/ 500 mls @ 333.333 mls/hr 01/19/21 15:00 01/20/21 05:10 Sodium Chloride IV Infused Q12H ROLO Infusion Lorazepam 0.25 mg 01/17/21 18:36 01/18/21 21:13 Lorazepam 0.5 Mg Tablet PO 0.25 mg Q6H PRN Administration anxiety Medication 1 each 01/19/21 09:00 No Benzodiazepines MISCELLANE DAILY ROLO Methadone HCl 40 mg 01/18/21 11:00 01/20/21 08:03 Methadone Hcl 1 Mg/0.1 Ml Oral.Conc PO 40 mg DAILY ROLO Administration Ondansetron HCl 4 mg 01/17/21 17:50 01/19/21 16:57 Ondansetron Hcl 4 Mg/2 Ml Vial IVPUSH 4 mg Q8H PRN Administration Nausea and Vomiting Ondansetron HCl 4 mg 01/18/21 11:26 01/18/21 13:05 Ondansetron Hcl 4 Mg/2 Ml Vial IVPUSH 4 mg ONCE PRN Administration Nausea and Vomiting Oxycodone HCl 10 mg 01/17/21 17:52 01/20/21 05:04 Oxycodone Hcl Immed Release 5 Mg Tablet PO 10 mg Q4H PRN Administration Pain, Mild (Pain Scale 1-3) Pharmacy Consult 1 each 01/17/21 17:36 Consult Rx Perform Med Rec MISCELLANE ONCE PRN Consult order Pharmacy Consult 1 each 01/17/21 18:34 Consult Rx Vancomycin Dosing MISCELLANE DAILY PRN Consult order Phenobarbital 45 mg 01/19/21 21:00 01/20/21 08:03 Phenobarbital 15 Mg Tablet PO 01/21/21 09:01 45 mg BID ROLO Administration Phenobarbital 15 mg 01/21/21 21:00 Phenobarbital 15 Mg Tablet PO 01/23/21 09:01 BID ROLO Phenobarbital 15 mg 01/24/21 09:00 Phenobarbital 15 Mg Tablet PO 01/25/21 09:01 DAILY ROLO Prazosin HCl 2 mg 01/18/21 21:00 01/19/21 20:41 Prazosin Hcl 1 Mg Capsule PO 2 mg BEDTIME ROLO Administration Protocol Quetiapine Fumarate 50 mg 01/18/21 21:00 01/19/21 20:41 Quetiapine Fumarate 50 Mg Tablet PO 50 mg BEDTIME ROLO Administration Sertraline HCl 100 mg 01/19/21 09:00 01/20/21 08:03 Sertraline Hcl 100 Mg Tablet PO 100 mg DAILY ROLO Administration Sodium Chloride 3 ml 01/18/21 00:00 01/20/21 08:03 0.9 % Sodium Chloride Flush 3 Ml Syringe IVFLUSH 3 ml QSHIFT ROLO Administration Time Spent With Patient Time: Total time spent is greater than 50% in coordination of care (as documented) at patient's floor/unit and/or counseling patient: Time with patient: less than 15 minutes Subjective Subjective Date of Service: 01/20/21 Principal diagnosis: right wrist abcess Interval history: no overnight events. complains of right dorsal hand and wrist pain Physical Exam Vital Signs: Vital Signs: Last Vital Signs Temp 97.1 F 01/20/21 07:50 Pulse 65 01/20/21 07:50 Resp 18 01/20/21 07:50 BP 109/65 01/20/21 07:50 Pulse Ox 96 01/20/21 07:50 Body Mass Index 28.3 Extrem: Other: minimal sts. inc c/d/i. flexing and extending fingers with stiffness and pain, improved from prior Procedures Date of Service Date of Service: 01/20/21 Quality Stroke Does the patient have a stroke diagnosis?: No VTE Prior VTE?: No VTE Risk Level:: Medical - moderate - high VTE Device Contraindication: Treatment Not Indicated VTE Drug Contraindication: N/A - Med Ordered
[2021-01-20] MEDS: Acetaminophen 325 MG TABLET 650 MG PO (09:38)
--- NOTE | 2021-01-20 09:45 | MHC.RECOVSUP ---
Recovery Support note: Patient is a 40 year old Bangladeshi speaking female who presented to [facility] ED due to an infection and was medically admitted. Patient has been seen by The Recovery Support Team. This newspaper writer checked in on patient to see how she is doing today. Patient reports significant discomfort due to wrist pain and reports she has been unable to sleep. Patient reports some relief after medication administration. Patient completed [facility] in [place]. Discussed case with patient's RN.
--- NOTE | 2021-01-20 10:27 | P.PNIM_ITS ---
Subjective Subjective Date of Service: 01/21/21 Interval History: F/u on right hand/arm cellulitis, and abscess, s/p I and D in OR 01/18, still has pain in the hand Review of Systems Gen: no fever Resp: no sob, no cough CV: no chest, no TURPIN, no leg edema GI: No n/v, no abd pain Neuro: No confusion Pain and limitted movment in right arm, hand Physical Exam Vital Signs: Vital Signs: Last Vital Signs Temp 97.1 F 01/20/21 07:50 Pulse 65 01/20/21 07:50 Resp 18 01/20/21 07:50 BP 109/65 01/20/21 07:50 Pulse Ox 96 01/20/21 07:50 Body Mass Index 28.3 Const: Other: General: AO X 3, no acute distress Resp: CTA bilateral CVS: S1,S2,RRR GI: +BS, NT, no distention Skin: No rash, wound dressing in place, splint in place Neuro: motor grossly intact Psych: appropriate affect Objective Data Current Medications Generic Name Dose Route Start Last Admin Trade Name Freq PRN Reason Stop Dose Admin Acetaminophen 650 mg 01/17/21 17:50 01/20/21 09:38 Acetaminophen 325 Mg Tablet PO 650 mg Q6H PRN Administration Pain, Mild (Pain Scale 1-3) Albuterol Sulfate 2 puff 01/18/21 17:58 Albuterol Sulfate 90 Mcg 8 Gm Inhaler INHALE TID PRN Shortness Of Breath Cyanocobalamin 1,000 mcg 01/19/21 09:00 01/20/21 08:03 Cyanocobalamin (Vitamin B-12) 1,000 Mcg Tablet PO 1,000 mcg DAILY ROLO Administration Enoxaparin Sodium 40 mg 01/17/21 21:00 01/19/21 20:48 Enoxaparin Sodium 40 Mg/0.4 Ml Syringe SUBCUT 40 mg Q24H ROLO Administration Fluticasone/Vilanterol 1 puff 01/19/21 08:00 01/20/21 07:39 Fluticasone/Vilanterol 100/25 Blst.W.Dev INHALE 1 puff RDAILY ROLO Administration Hydromorphone HCl 0.5 mg 01/18/21 12:41 01/18/21 14:06 Hydromorphone Hcl 0.5 Mg/0.5 Ml Syringe IVPUSH 0.5 mg Q5M PRN Administration Pain, Severe (Pain Scale 7-10) Hydromorphone HCl 1.5 mg 01/19/21 12:32 01/20/21 06:26 Hydromorphone Hcl 2 Mg/Ml Vial IVPUSH 1.5 mg Q4H PRN Administration Pain, Mild (Pain Scale 1-3) Vancomycin HCl 1,500 mg/ 500 mls @ 333.333 mls/hr 01/19/21 15:00 01/20/21 05:10 Sodium Chloride IV Infused Q12H ROLO Infusion Lorazepam 0.25 mg 01/17/21 18:36 01/18/21 21:13 Lorazepam 0.5 Mg Tablet PO 0.25 mg Q6H PRN Administration anxiety Medication 1 each 01/19/21 09:00 No Benzodiazepines MISCELLANE DAILY ROLO Methadone HCl 40 mg 01/18/21 11:00 01/20/21 08:03 Methadone Hcl 1 Mg/0.1 Ml Oral.Conc PO 40 mg DAILY ROLO Administration Ondansetron HCl 4 mg 01/17/21 17:50 01/19/21 16:57 Ondansetron Hcl 4 Mg/2 Ml Vial IVPUSH 4 mg Q8H PRN Administration Nausea and Vomiting Ondansetron HCl 4 mg 01/18/21 11:26 01/18/21 13:05 Ondansetron Hcl 4 Mg/2 Ml Vial IVPUSH 4 mg ONCE PRN Administration Nausea and Vomiting Oxycodone HCl 10 mg 01/17/21 17:52 01/20/21 09:39 Oxycodone Hcl Immed Release 5 Mg Tablet PO 10 mg Q4H PRN Administration Pain, Mild (Pain Scale 1-3) Pharmacy Consult 1 each 01/17/21 17:36 Consult Rx Perform Med Rec MISCELLANE ONCE PRN Consult order Pharmacy Consult 1 each 01/17/21 18:34 Consult Rx Vancomycin Dosing MISCELLANE DAILY PRN Consult order Phenobarbital 45 mg 01/19/21 21:00 01/20/21 08:03 Phenobarbital 15 Mg Tablet PO 01/21/21 09:01 45 mg BID ROLO Administration Phenobarbital 15 mg 01/21/21 21:00 Phenobarbital 15 Mg Tablet PO 01/23/21 09:01 BID ROLO Phenobarbital 15 mg 01/24/21 09:00 Phenobarbital 15 Mg Tablet PO 01/25/21 09:01 DAILY ROLO Prazosin HCl 2 mg 01/18/21 21:00 01/19/21 20:41 Prazosin Hcl 1 Mg Capsule PO 2 mg BEDTIME ROLO Administration Protocol Quetiapine Fumarate 50 mg 01/18/21 21:00 01/19/21 20:41 Quetiapine Fumarate 50 Mg Tablet PO 50 mg BEDTIME ROLO Administration Sertraline HCl 100 mg 01/19/21 09:00 01/20/21 08:03 Sertraline Hcl 100 Mg Tablet PO 100 mg DAILY ROLO Administration Sodium Chloride 3 ml 01/18/21 00:00 01/20/21 08:03 0.9 % Sodium Chloride Flush 3 Ml Syringe IVFLUSH 3 ml QSHIFT [facility] Administration Labs CBC & Chem 7: 01/19/21 08:18 01/19/21 08:18 Labs: Laboratory Results - last 24 hr 01/20/21 02:04 Vancomycin Trough 10.5 Microbiology Microbiology Results: Microbiology 01/17/21 Unknown Gram Stain - Final Hand Right Routine Culture - Final Methicillin Res Staph Aureus 01/17/21 15:44 Blood Culture - Preliminary Blood - Venous No growth after 48 hours. 01/17/21 12:08 Blood Culture - Preliminary Blood - Venous No growth after 48 hours. Quality Stroke Does the patient have a stroke diagnosis?: No VTE Prior VTE?: No VTE Risk Level:: Medical - moderate - high VTE Device Contraindication: Treatment Not Indicated VTE Drug Contraindication: N/A - Med Ordered Assessment and Plan (1) Hand swelling: Status: Acute Assessment and Plan: 40-year-old woman presents to the ER with right hand swelling and pain after injection of IV heroin. Right hand circumferential Cellulitis, abscess, s/p I and D in OR 01/[address] Anguiano, culture Staph Aureus -Continue Vanco, DC Zosyn, Transition to PO Doxy later today -Dressing changes by surgery, follow with ortho clinic for suture removal 7 to 10 days -follow cultures -Pain mangement with Dilaudid, transition to oral meds. Opiate Dependence Continue Methadone upon verification Addiction Services consult Alcohol Dependency/Withdrawal--continue Phenobarbital DVT prophylaxis with Lovenox Full code
[2021-01-20] MEDS: diphenhydrAMINE HCL 25 MG TABLET PO (10:50)
[2021-01-20 15:51] VITALS: BP 121/75; PULSE 80; RESP 20; TEMP 36.3; O2SAT 99
[2021-01-20 20:53] VITALS: BP 121/75; PULSE 80
[2021-01-20] MEDS: Enoxaparin Sodium 40 MG/0.4 ML SYRINGE SUBCUT (20:53)
[2021-01-20] MEDS: Prazosin HCL 1 MG CAPSULE 2 MG PO (20:53)
[2021-01-20] MEDS: QUEtiapine Fumarate 50 MG TABLET PO (20:54)
[2021-01-20 23:56] VITALS: BP 95/52; PULSE 86; RESP 16; TEMP 36.2; O2SAT 98
[2021-01-21] MEDS: HYDROmorphone HCl 2 MG/ML VIAL 1.5 MG IVPUSH ×2 (02:52→07:12)
[2021-01-21] MEDS: vancomycin HCL 1,500 MG in 0.9 % Sodium Chloride 500 ML 333.33 MG IV (02:52)
[2021-01-21] MEDS: Fluticasone/Vilanterol 100/25 BLST.W.DEV 1 PUFF INHALE (07:54)
[2021-01-21 07:56] VITALS: PULSE 70; O2SAT 98
[2021-01-21 08:00] VITALS: BP 92/61; PULSE 75; RESP 18; TEMP 36.2; O2SAT 98
[2021-01-21] MEDS: 0.9 % Sodium Chloride Flush 3 ML SYRINGE IVFLUSH (08:15)
[2021-01-21] MEDS: Cyanocobalamin (Vitamin B-12) 1,000 MCG TABLET 1000 MCG PO (08:15)
[2021-01-21] MEDS: Sertraline HCL 100 MG TABLET PO (08:15)
[2021-01-21] MEDS: PHENobarbitaL 15 MG TABLET 45 MG PO (08:15)
--- NOTE | 2021-01-21 09:20 | P.DS_ITS ---
DS: Providers Provider Date of Service: 01/21/21 Date of admission: 01/17/21 17:50 Primary care physician: Hillary Her MD Consults: 01/17/21 17:50 Consult to Infectious Diseases Routine Consulting Provider: Gabriella Weber Reason for consultation: cellulitis Has provider been notified: No 01/17/21 17:52 Addiction Medicine Routine Consulting Provider: Zenaida Talley Reason for consultation: heroine abuse Has provider been notified: No 01/17/21 22:50 Consult to Orthopedics Routine Consulting Provider: Mark Anguiano Reason for consultation: hand cellulitis; ?tenosinuvitis DS: Diagnosis Discharge Diagnosis (1) Hand swelling: Status: Acute DS: Medications Discharge Medications Home Medications: Home Medications Medication Instructions Recorded Confirmed albuterol sulfate [Ventolin HFA] 2 puff INHALATION TID PRN 01/17/21 01/17/21 cyanocobalamin (vitamin B-12) 1,000 mcg PO DAILY 01/17/21 01/17/21 [Vitamin B-12] fluticasone propion-salmeterol 1 inh INHALATION BID 01/17/21 01/17/21 [Advair Diskus] methadone [Methadose] 40 mg PO DAILY 01/17/21 01/17/21 prazosin 1 cap PO BEDTIME 01/17/21 01/17/21 quetiapine 1 tab PO BEDTIME 01/17/21 01/17/21 sertraline 1 tab PO DAILY 01/17/21 01/17/21 Previous Rx's Medication Instructions Recorded oxycodone 5 mg PO Q6H PRN #14 tab 01/21/21 DS: Summary Hospital Course Hospital Course: Chief Complaint: Hand pain 40-year-old woman presented to the ER with complaints of worsening right hand swelling. She has a history of heroin use and injected in that hand. She noted swelling that was worse today. She reports that she woke up this morning with severe right hand pain and noted that he was quite swollen. She denied fever, chills, nausea, vomiting, diarrhea she denied heroin use today and reported her last time that she use was last . Apparently in the ER patient was in the bathroom for some time there was concern for heroin use at that time, she was searched by security team. She had a x-ray of the right hand which showed diffuse soft tissue swelling with no evidence of osteomyelitis or fracture. She was given vancomycin, Zosyn, Dilaudid. She will be admitted for further management and treatment of acute cellulitis and edema to right hand. hospital course: Patient had cellulitis with abscess formation with CT showing eripherally enhancing collection in the dorsal soft tissues extendingfrom the distal forearm to the proximal hand, measuring approximately 3.5 cm in length. Deeper to this abutting the extensor digitorumtendons of the mid hand there is an additional thin collectionmeasuring up to 1.7 cm in length. Appearance is nicole picious for abscesses in the setting of surrounding cellulitis. She was treated with IV Vancomycin and Zosyn and she had I and D in the OR on 01/[address] Anguiano, culture is positive for MRSA, overall healing well, swelling markedly decreased. Will transition to Oral Doxycyline for 10 more days. To follow up with Dr. Anguiano in 7 to 10 days for suture removal and is also to keep arm in sling Alcohol Dependency--Was on Phenobarbital to prevent full blown withdrawal, alcohol cessation discussed with her Opioid dependence--Continue Methadone Time Spent with Patient Time attestation: Total time spent providing and/or coordinating discharge services: Discharge coordination time: Greater than 30 minutes Quality: Stroke Does the patient have a stroke diagnosis?: No Physical Exam Vital Signs: Vital Signs: Last Vital Signs Temp 97.1 F 01/21/21 08:00 Pulse 75 01/21/21 08:00 Resp 18 01/21/21 08:00 BP 92/61 01/21/21 08:00 Pulse Ox 98 01/21/21 08:00 Body Mass Index 28.3 Const: Other: General: AO X 3, no acute distress Resp: CTA bilateral CVS: S1,S2,RRR GI: +BS, NT, no distention Skin: No rash. Neuro: motor grossly intact Psych: appropriate affect DS: Data Data Completed and Pending Labs on day of discharge: Preliminary micro results at discharge 01/17/21 15:44 Blood Culture - Preliminary Blood - Venous No growth after 48 hours. 01/17/21 12:08 Blood Culture - Preliminary Blood - Venous No growth after 48 hours. Imaging right hand x-ray: Radiologist's impression: ITS Impressions Hand X-Ray 01/17/21 12:24 IMPRESSION: Diffuse soft tissue swelling. No x-ray evidence of osteomyelitis or fracture. Hand CT 01/18/21 00:20 IMPRESSION: Peripherally enhancing collection in the dorsal soft tissues extending from the distal forearm to the proximal hand, measuring approximately 3.5 cm in length. Deeper to this abutting the extensor digitorum tendons of the mid hand there is an additional thin collection measuring up to 1.7 cm in length. Appearance is suspicious for abscesses in the setting of surrounding cellulitis. Discharge Plan Discharge Anticipated Discharge Date/Time: 01/21/21 09:09 Patient Disposition: Home, Self-Care Discharge Diagnosis: Cellulitis and abscess of right hand Referrals: Hillary Her MD [Primary Care Provider] - 1 Week Discharge Medications: New oxycodone 5 mg tablet 5 mg PO Q6H PRN (Reason: pain (scale score 7-10)) Qty: 14 RF: 0 doxycycline hyclate 100 mg capsule 100 mg PO BID Qty: 28 RF: 0 Continued fluticasone propion-salmeterol [Advair Diskus] 250-50 mcg/dose Blister With Device 1 inh INHALATION BID RF: 0 sertraline 100 mg tablet 1 tab PO DAILY RF: 0 cyanocobalamin (vitamin B-12) [Vitamin B-12] 1,000 mcg Tablet 1,000 mcg PO DAILY RF: 0 methadone [Methadose] 40 mg Tablet,Soluble 40 mg PO DAILY RF: 0 albuterol sulfate [Ventolin HFA] 90 mcg/actuation Hfa Aerosol Inhaler 2 puff INHALATION TID PRN (Reason: Shortness Of Breath) RF: 0 prazosin 2 mg capsule 1 cap PO BEDTIME RF: 0 quetiapine 50 mg tablet 1 tab PO BEDTIME RF: 0 Diet: advance to usual diet Activity on Discharge: As tolerated Stand Alone Forms: Patient Portal Discharge page Care Plan Goals: full recover from cellulitis and abscess of the hand Health Concerns: abscess and cellulitis of the hand Plan of Treatment: Take Doxycyline as recommended and follow up with Dr. Anguiano in 7 to 10 days for suture removal Assessment: as above
[2021-01-21] MEDS: Acetaminophen 325 MG TABLET 650 MG PO ×2 (10:38→16:17)
[2021-01-21] MEDS: oxyCODONE HCl Immed Release 5 MG TABLET 10 MG PO ×2 (10:38→16:17)
[2021-01-21 12:00] VITALS: O2SAT 98
--- NOTE | 2021-01-21 13:58 | PM.PNORT ---
Progress Note: A&P Assessment and plan (1) Abscess of right hand: Status: Acute Assessment and Plan: Right hand abcess- pod#3 doing well cont po abx per ID f/u clinic for suture removal 1 week dry dressing changes prn and hand motion as tolerated Fall Risk Details Current Medications: Current Medications Generic Name Dose Route Start Last Admin Trade Name Freq PRN Reason Stop Dose Admin Acetaminophen 650 mg 01/17/21 17:50 01/21/21 10:38 Acetaminophen 325 Mg Tablet PO 650 mg Q6H PRN Administration Pain, Mild (Pain Scale 1-3) Albuterol Sulfate 2 puff 01/18/21 17:58 Albuterol Sulfate 90 Mcg 8 Gm Inhaler INHALE TID PRN Shortness Of Breath Cyanocobalamin 1,000 mcg 01/19/21 09:00 01/21/21 08:15 Cyanocobalamin (Vitamin B-12) 1,000 Mcg Tablet PO 1,000 mcg DAILY ROLO Administration Diphenhydramine HCl 25 mg 01/20/21 10:36 01/20/21 10:50 Diphenhydramine Hcl 25 Mg Tablet PO 25 mg Q6H PRN Administration Anxiety Doxycycline Hyclate 100 mg 01/21/21 10:00 01/21/21 10:39 Doxycycline Hyclate 100 Mg Tablet PO 100 mg Q12H ROLO Administration Enoxaparin Sodium 40 mg 01/17/21 21:00 01/20/21 20:53 Enoxaparin Sodium 40 Mg/0.4 Ml Syringe SUBCUT 40 mg Q24H ROLO Administration Fluticasone/Vilanterol 1 puff 01/19/21 08:00 01/21/21 07:54 Fluticasone/Vilanterol 100/25 Blst.W.Dev INHALE 1 puff RDAILY ROLO Administration Hydromorphone HCl 0.5 mg 01/18/21 12:41 01/18/21 14:06 Hydromorphone Hcl 0.5 Mg/0.5 Ml Syringe IVPUSH 0.5 mg Q5M PRN Administration Pain, Severe (Pain Scale 7-10) Hydromorphone HCl 1.5 mg 01/19/21 12:32 01/21/21 07:12 Hydromorphone Hcl 2 Mg/Ml Vial IVPUSH 1.5 mg Q4H PRN Administration Pain, Mild (Pain Scale 1-3) Lorazepam 0.25 mg 01/17/21 18:36 01/18/21 21:13 Lorazepam 0.5 Mg Tablet PO 0.25 mg Q6H PRN Administration anxiety Medication 1 each 01/19/21 09:00 No Benzodiazepines MISCELLANE DAILY RLOO Methadone HCl 40 mg 01/18/21 11:00 01/21/21 08:15 Methadone Hcl 1 Mg/0.1 Ml Oral.Conc PO 40 mg DAILY ROLO Administration Ondansetron HCl 4 mg 01/17/21 17:50 01/19/21 16:57 Ondansetron Hcl 4 Mg/2 Ml Vial IVPUSH 4 mg Q8H PRN Administration Nausea and Vomiting Ondansetron HCl 4 mg 01/18/21 11:26 01/18/21 13:05 Ondansetron Hcl 4 Mg/2 Ml Vial IVPUSH 4 mg ONCE PRN Administration Nausea and Vomiting Oxycodone HCl 10 mg 01/17/21 17:52 01/21/21 10:38 Oxycodone Hcl Immed Release 5 Mg Tablet PO 10 mg Q4H PRN Administration Pain, Mild (Pain Scale 1-3) Oxycodone HCl 5 mg 01/20/21 16:28 Oxycodone Hcl Immed Release 5 Mg Tablet PO Q6H PRN Pain, Severe (Pain Scale 7-10) Pharmacy Consult 1 each 01/17/21 17:36 Consult Rx Perform Med Rec MISCELLANE ONCE PRN Consult order Pharmacy Consult 1 each 01/17/21 18:34 Consult Rx Vancomycin Dosing MISCELLANE DAILY PRN Consult order Phenobarbital 15 mg 01/21/21 21:00 Phenobarbital 15 Mg Tablet PO 01/23/21 09:01 BID ROLO Phenobarbital 15 mg 01/24/21 09:00 Phenobarbital 15 Mg Tablet PO 01/25/21 09:01 DAILY ROLO Prazosin HCl 2 mg 01/18/21 21:00 01/20/21 20:53 Prazosin Hcl 1 Mg Capsule PO 2 mg BEDTIME ROLO Administration Protocol Quetiapine Fumarate 50 mg 01/18/21 21:00 01/20/21 20:54 Quetiapine Fumarate 50 Mg Tablet PO 50 mg BEDTIME ROLO Administration Sertraline HCl 100 mg 01/19/21 09:00 01/21/21 08:15 Sertraline Hcl 100 Mg Tablet PO 100 mg DAILY ROLO Administration Sodium Chloride 3 ml 01/18/21 00:00 01/21/21 08:15 0.9 % Sodium Chloride Flush 3 Ml Syringe IVFLUSH 3 ml QSHIFT ROLO Administration Time Spent With Patient Time: Total time spent is greater than 50% in coordination of care (as documented) at patient's floor/unit and/or counseling patient: Time with patient: less than 15 minutes Subjective Subjective Date of Service: 01/21/21 Principal diagnosis: right wrist abcess Interval history: Feels better today hand less swollen and moving fingers more comfortably Physical Exam Vital Signs: Vital Signs: Last Vital Signs Temp 97.1 F 01/21/21 08:00 Pulse 75 01/21/21 08:00 Resp 18 01/21/21 08:00 BP 92/61 01/21/21 08:00 Pulse Ox 98 01/21/21 08:00 Body Mass Index 28.3 Extrem: Other: minimal sts nmo erythema mild dorsal hand swelling improved from prior Procedures Date of Service Date of Service: 01/21/21 Quality Stroke Does the patient have a stroke diagnosis?: No VTE Prior VTE?: No VTE Risk Level:: Medical - moderate - high VTE Device Contraindication: Treatment Not Indicated VTE Drug Contraindication: N/A - Med Ordered
[2021-01-21 15:31] VITALS: BP 131/73; PULSE 77; RESP 20; TEMP 36.1; O2SAT 98
--- NOTE | 2021-01-21 16:16 | MHC.CM.PN ---
PT CLEARED TO DC HOME TODAY WITH NO SERVICES
[2021-01-21] MEDS: Fluconazole 150 MG TABLET PO (16:47)
--- NOTE | 2021-01-23 09:40 | P.OP_ITS ---
Operative Note Operative Note Date of Service: 01/23/21 Narrative: Pre-op diagnosis: right hand abcess Post-op diagnosis: same Procedure: I&D right hand Surgeon: Mark Anguiano MD Anesthesia: GETA Was an Novelty Dipper used for this Procedure?: No Estimated blood loss (mL): 20 Tourniquet time (min): 20 Pathology: other Condition: stable Disposition: PACU Procedure in detail: Patient was brought to the operating room placed supine on the hand table and prepped and draped in standard sterile fashion. A time-out was called to identify reverse I per procedure proper surgeon and. IV antibiotics were scheduled and so no further antibiotics were administered. I began by making a 2 cm incision over the dorsal wrist and used a Paula clamp to dissect down through the subcutaneous tissues. There was immediate expression of copious purulence material. I used a [employer] to open up the superficial dorsal wrist space and probed this. There was no deep extension. I used a power mortgage or loan underwriter to irrigate as 3 L of warm saline and expressed fluid from the dorsal hand as well. This was not purulent this was just edematous fluid. Once this was done I placed quarter-inch iodoform packing in the dorsal superficial region of the wrist and placed the patient in a well-padded volar splint in a position of safety. I placed 1 nylon suture but the remainder of the small incision was left open. Patient was then extubated brought to recovery room in stable condition there were no known complications.
== END 2021-01-21 17:22 | disposition home or self-care (01) | DRG 364 ==
LOC: HO.ED 14:31 → HO.EDOVER 18:08 → HO.S3 01-18 05:38
PROVIDERS: Hospitalist; Nurse Practitioner Family; Orthopaedic Surgery; Admitting Provider Nurse Practitioner Acute Care; Emergency Provider Emergency Medicine; PCP Internal Medicine; Visit Provider Internal Medicine
PROC: 0J9J0ZZ Drainage of Right Hand Subcutaneous Tissue and Fascia, Open Approach (ICD-10-PCS; principal; 2021-01-18 11:00)
DX: L02.511 Cutaneous abscess of right hand (principal); F11.20 Opioid dependence, uncomplicated; F41.9 Anxiety disorder, unspecified; F17.210 Nicotine dependence, cigarettes, uncomplicated; L03.113 Cellulitis of right upper limb; F32.9 Major depressive disorder, single episode, unspecified; D72.829 Elevated white blood cell count, unspecified; B95.62 Methicillin resistant Staphylococcus aureus infection as the cause of diseases classified elsewhere; F10.239 Alcohol dependence with withdrawal, unspecified; Z20.822 Contact with and (suspected) exposure to COVID-19; F43.10 Post-traumatic stress disorder, unspecified; Z71.6 Tobacco abuse counseling; Z88.5 Allergy status to narcotic agent; Z88.6 Allergy status to analgesic agent; Z79.51 Long term (current) use of inhaled steroids; Z79.899 Other long term (current) drug therapy
CPT/HCPCS: 36415; 73120; 73201; 80048; 80053; 80202; 83605; 85025; 85027; 85652; 86140; 87040; 87071; 87077; 87186; 87205; 87635; 94640; 99024; 99285; J0131; J1100; J1170; J1650; J2250; J2405; J2543; J2560; J3010; J3370; Q0163; Q9967

== ENCOUNTER 2021-02-23 15:50 | Emergency (ER) | payer OTHER, SELFPAY ==
[2021-02-23 16:06] VITALS: BP 122/84; PULSE 99; RESP 18; TEMP 36.9; O2SAT 97; BMI 28.3
[2021-02-23 16:26] LABS: Glucose Urine UA NEG (NEG); Leukocyte Esterase Urine NEG (NEG); Nitrite Urine NEG (NEG); Specific Gravity - Urine 1.025 (1.005-1.025); UACC Culture Trigger NO; Urine Blood 2+ (NEG); Urine Ketones NEG (NEG); Urine Protein NEG (NEG-TRACE)
[2021-02-23 16:27] LABS: Appearance Urine HAZY; Color Urine YELLOW
[2021-02-23 16:39] LABS: Bacteria Urine TRACE /LPF; Mucus Urine 2+ /LPF; Squamous Epithelial Cell Urine 2+ /LPF; WBC Urine 0 /HPF (0-4)
== END 2021-02-23 19:54 | disposition left against medical advice (07) ==
PROVIDERS: Emergency Provider Emergency Medicine; PCP Internal Medicine
DX: R10.9 Unspecified abdominal pain (principal); R42 Dizziness and giddiness; R53.83 Other fatigue; F11.99 Opioid use, unspecified with unspecified opioid-induced disorder
CPT/HCPCS: 81001; 99282

== ENCOUNTER 2021-09-11 14:46 | Outpatient (REF) | payer OTHER, SELFPAY ==
[2021-09-11 14:59] LABS: MANUAL DIFF FLAG NO
[2021-09-11 15:10] LABS: Basophils Percent Auto 0.2 % (0-2); Eosinophils Absolute Auto 0.1 X10*3/uL (0.0-0.4); Eosinophils Percent Auto 1.3 % (0-4); Hematocrit 40.2 % (37.0-47.0); Hemoglobin 13.2 g/dl (12.0-16.0); Imm Gran Abs Auto 0.02 X10*3/uL (0.00-0.03); Imm Gran Pct Auto 0.2 % (0.0-0.4); Lymphocytes Absolute Auto 1.9 X10*3/uL (1.2-4.9); Lymphocytes Percent Auto 22.7 % (20-40); Mean Corpuscular HGB Conc 32.8 g/dl (31.0-35.0); Mean Corpuscular Hemoglobin 33.6 pg (27.0-33.0); Mean Corpuscular Volume 102.3 fL (80.0-98.0); Mean Platelet Volume 9.7 fL (9.4-12.3); Monocytes Absolute Auto 0.6 X10*3/uL (0.1-1.2); Monocytes Percent Auto 7.7 % (2-11); Neutrophils Absolute Auto 5.6 x10*3/uL (2.0-8.3); Neutrophils Percent Auto 67.9 % (45-73); Platelet Count 299 X10*3/uL (160-400); Red Blood Count 3.93 X10*6/uL (4.20-5.50); Red Cell Distribution Width 12.6 % (11.0-16.0); White Blood Count 8.2 X10*3/uL (4.8-10.8)
[2021-09-11 15:28] LABS: Alanine Aminotransferase 19 U/L (0-31); Albumin Level 4.5 g/dL (3.5-5.0); Alkaline Phosphatase 69 U/L (39-117); Anion Gap 16 (12-20); Aspartate Amino Transferase 22 U/L (5-31); Bilirubin Total 0.3 mg/dL (0.0-1.0); Blood Urea Nitrogen 15 mg/dL (9-16); Calcium 9.6 mg/dL (8.4-10.2); Carbon Dioxide 25 mmol/L (22-29); Chloride 102 mmol/L (96-108); Cholesterol 271 mg/dL; Estimated Glomerular Filt Rate > 60; Glucose Random 95 mg/dL (60-115); HDL Cholesterol 52 mg/dL; LDL Cholesterol Calculated 183 mg/dl; Potassium 4.1 mmol/L (3.3-5.1); Sodium 139 mmol/L (135-145); Total Protein 7.4 g/dL (6.5-8.0); Triglycerides 184 mg/dL
[2021-09-11 15:49] LABS: Thyroid Stimulating Hormone 2.12 uIU/mL (0.32-4.0)
== END 2021-09-11 14:47 | disposition home or self-care (01) ==
LOC: HO.LAB 14:46
PROVIDERS: PCP Internal Medicine; Visit Provider Internal Medicine
DX: F32.9 Major depressive disorder, single episode, unspecified (principal); F43.10 Post-traumatic stress disorder, unspecified; G47.00 Insomnia, unspecified; Z72.0 Tobacco use
CPT/HCPCS: 36415; 80053; 80061; 84443; 85025

== ENCOUNTER 2021-12-26 13:50 | Outpatient (REF) | payer OTHER, SELFPAY ==
[2021-12-26 15:05] LABS: Alanine Aminotransferase 15 U/L (0-31); Albumin Level 4.3 g/dL (3.5-5.0); Alkaline Phosphatase 76 U/L (39-117); Anion Gap 13 (12-20); Aspartate Amino Transferase 16 U/L (5-31); Bilirubin Total 0.3 mg/dL (0.0-1.0); Blood Urea Nitrogen 14 mg/dL (9-16); Calcium 8.9 mg/dL (8.4-10.2); Carbon Dioxide 24 mmol/L (22-29); Chloride 103 mmol/L (96-108); Cholesterol 235 mg/dL; Estimated Glomerular Filt Rate > 60; Glucose Random 93 mg/dL (60-115); HDL Cholesterol 63 mg/dL; LDL Cholesterol Calculated 118 mg/dl; Potassium 3.9 mmol/L (3.3-5.1); Sodium 136 mmol/L (135-145); Total Protein 6.9 g/dL (6.5-8.0); Triglycerides 272 mg/dL
== END 2021-12-26 13:51 | disposition home or self-care (01) ==
LOC: HO.LAB 13:50
PROVIDERS: PCP Internal Medicine; Visit Provider Internal Medicine
DX: Z00.01 Encounter for general adult medical examination with abnormal findings (principal); E78.00 Pure hypercholesterolemia, unspecified; F32.9 Major depressive disorder, single episode, unspecified
CPT/HCPCS: 36415; 80053; 80061

== ENCOUNTER 2022-03-09 20:29 | Emergency (ER) | payer OTHER, SELFPAY ==
--- NOTE | ~2022-03-09 | CT_ITS ---
EXAMINATION: CT HEAD WITHOUT CONTRAST CLINICAL INFORMATION: Frequent headaches COMPARISON: 08/18/2019 TECHNIQUE: Contiguous axial imaging was performed from the skull base to vertex without intravenous administration of contrast. This CT examination was performed using dose optimization techniques as appropriate, variously including the following: *Automated exposure control *Adjustment of mA and/or kV according to patient size (this includes techniques or standardized protocols for targeted exams where dose is matched to indication/reason for exam; i.e. extremities or head) *Use of iterative reconstruction technique DLP: 690 mGy-cm FINDINGS: There is no evidence of acute intracranial hemorrhage or territorial infarction. No abnormal mass-effect or midline shift is seen. Green to white matter differentiation is well preserved. No extra-axial fluid collections are identified. The ventricles are normal in size. There is no abnormal attenuation within the brain parenchyma. The osseous structures and soft tissues are normal. Partial opacification of the posterior left ethmoid air cells. The mastoid air cells are well-aerated. CT/CT head/brain wo IV con IMPRESSION: No acute intracranial pathology.
--- NOTE | 2022-03-09 20:47 | ECG_ITS ---
Test Reason : SYNCOPE Blood Pressure : / mmHG Vent. Rate : 081 BPM Atrial Rate : 081 BPM P-R Int : 140 ms QRS Dur : 082 ms QT Int : 392 ms P-R-T Axes : 058 048 033 degrees QTc Int : 455 ms Normal sinus rhythm Normal ECG When compared with ECG of 16-FEB-2019 20:37, Vent. rate has increased BY 33 BPM Referred By: Generic ED Physician Electronically Signed By:DAISY HUA
[2022-03-09 20:56] LABS: Hematocrit 35.8 % (37.0-47.0); Hemoglobin 12.1 g/dl (12.0-16.0); Mean Corpuscular HGB Conc 33.8 g/dl (31.0-35.0); Mean Corpuscular Hemoglobin 31.2 pg (27.0-33.0); Mean Corpuscular Volume 92.3 fL (80.0-98.0); Platelet Count 252 X10*3/uL (160-400); Red Blood Count 3.88 X10*6/uL (4.20-5.50); Red Cell Distribution Width 13.2 % (11.0-16.0); White Blood Count 6.6 X10*3/uL (4.8-10.8)
[2022-03-09 21:12] LABS: Alanine Aminotransferase 16 U/L (0-31); Albumin Level 4.2 g/dL (3.5-5.0); Alkaline Phosphatase 60 U/L (39-117); Anion Gap 18 (12-20); Aspartate Amino Transferase 18 U/L (5-31); Bilirubin Total 0.2 mg/dL (0.0-1.0); Blood Urea Nitrogen 11 mg/dL (9-16); Carbon Dioxide 23 mmol/L (22-29); Chloride 103 mmol/L (96-108); Estimated Glomerular Filt Rate > 60; Glucose Random 78 mg/dL (60-115); Potassium 4.1 mmol/L (3.3-5.1); Sodium 140 mmol/L (135-145)
[2022-03-09 21:21] VITALS: BP 126/78; PULSE 91; RESP 18; TEMP 36.2; O2SAT 97; BMI 71.5
[2022-03-09 21:44] LABS: Appearance Urine Clear; Color Urine Yellow; Glucose Urine UA Negative (Negative); Leukocyte Esterase Urine Negative (Negative); Nitrite Urine Negative (Negative); PH 5.5 (5.0-9.0); Urine Blood Small (1+) (Negative); Urine Ketones Negative (Negative); Urine Protein Negative (Neg-Trace)
[2022-03-09 21:50] LABS: Bacteria Urine None Seen (None Seen); Hyaline Casts Urine 0-2 /LPF (0-2); WBC Urine 0-5 /HPF (0-5)
[2022-03-10 01:23] LABS: HCG Quantitative < 2 mIU/mL
[2022-03-10 01:27] LABS: Troponin-I High Sensitivity < 3.5 ng/L (<3.5-17.0)
[2022-03-10 01:53] VITALS: BP 98/57; PULSE 83; RESP 18; TEMP 37.2; O2SAT 97
[2022-03-10 01:55] VITALS: BP 109/64; BP 132/59; PULSE 80; PULSE 97; O2SAT 98
--- NOTE | 2022-03-10 02:05 | ED_ITS ---
HPI - General Adult General Chief complaint: General Medical Stated complaint: passing out, vomiting Time Seen by Provider: 03/10/22 00:57 Source: patient Mode of arrival: ambulatory Limitations: no limitations History of Present Illness HPI narrative: patient comes to the emergency room complaining of 2 to 3 days of vomiting and diarrhea. Patient reports passing out approximately 1 hour ago. Patient also complaining of dizziness and migraine headache. Patient states that she cannot describe the dizziness, patient states that sometimes she feels unsteady, sometimes the room spins, sometimes she feels like she is spinning Related Data Home Medications Medication Instructions Recorded Confirmed albuterol sulfate 90 mcg/actuation 2 puff inhalation TID PRN 01/17/21 01/17/21 aerosol inhaler (Ventolin HFA) Shortness Of Breath cyanocobalamin (vitamin B-12) 1,000 mcg PO DAILY 01/17/21 01/17/21 1,000 mcg tablet (Vitamin B-12) fluticasone 250 mcg-salmeterol 50 1 inh inhalation BID 01/17/21 01/17/21 mcg/dose blistr powdr for inhalation (Advair Diskus) methadone 40 mg soluble tablet 40 mg PO DAILY 01/17/21 01/17/21 (Methadose) prazosin 2 mg capsule 1 cap PO BEDTIME 01/17/21 01/17/21 quetiapine 50 mg tablet 1 tab PO BEDTIME 01/17/21 01/17/21 sertraline 100 mg tablet 1 tab PO DAILY 01/17/21 01/17/21 Previous Rx's Medication Instructions Recorded doxycycline hyclate 100 mg capsule 100 mg PO BID #20 caps 01/21/21 oxycodone 5 mg tablet 5 mg PO Q6H PRN pain (scale score 01/21/21 7-10) #14 tabs ondansetron 4 mg disintegrating 4 mg PO Q6H PRN nausea and 03/10/22 tablet vomiting #10 tabs sumatriptan succinate 50 mg tablet See Rx Instructions PO .COMPLEX 03/10/22 #10 tabs Allergies Allergy/AdvReac Type Severity Reaction Status Date / Time latex [Latex] Allergy Mild RASH,ITCHY Verified 02/23/21 16:06 aspirin [ASA] Allergy Unknown AGGRAVATE Verified 02/23/21 16:06 COLITIS furosemide [Lasix] Allergy Unknown hives Verified 02/23/21 16:06 ketorolac [From TORADOL] Allergy Unknown ANXIETY, Verified 02/23/21 16:06 dizziness metoclopramide [From REGLAN] Allergy Unknown PASSED OUT Verified 02/23/21 16:06 NSAIDS (Non-Steroidal Allergy Unknown AGGRAVATE Verified 02/23/21 16:06 Anti-Inflamma COLITIS [NSAIDS (NON-STEROIDAL ANTI-INFLAMMA] promethazine [From PHENERGAN] Allergy Unknown UNKNOWN Verified 02/23/21 16:06 tramadol [TRAMADOL] Allergy Unknown UNKNOWN Verified 02/23/21 16:06 morphine AdvReac Unknown angry Verified 02/23/21 16:06 trazodone [TRAZODONE] AdvReac Unknown NAUSEA & Verified 02/23/21 16:06 VOMITING From BENADRYL Allergy Unknown SHAKING Uncoded 03/16/20 16:42 Review of Systems Review of Systems: Constitutional : No Weight loss, No Fever, No Chills, No Night Sweats, No Fatigue, No Malaise ENT/Mouth : No Hearing loss, No Ear Pain, No Nasal Congestion, No Sinus Pain, No Hoarseness, No sore throat, No Rhinorrhea, No Swallowing Difficulty Eyes: No Eye Pain, No Swelling, No Redness, No Foreign Body, No Discharge, No Vision Changes Cardiovascular : No Chest Pain, No SOB, No Dyspnea on Exertion, No Orthopnea, No Edema, No Palpitations Respiratory : No Cough, No Sputum, No Wheezing, No Smoke Exposure, No Dyspnea Gastrointestinal : complaining of nausea and vomiting,No Diarrhea, No Constipation, No abdominal Pain, No Hematochezia, No Melena Genitourinary : no irregular bleeding, No Dysuria, No Urinary Frequency, No Hematuria, No Urinary Incontinence, No Urgency, No Flank Pain, No Urinary Flow Changes, No Hesitancy Musculoskeletal : No joint pain, No Myalgias, No Joint Swelling Skin : No Skin Lesions, No rash Neuro : No Weakness, No Numbness, No Paresthesias, complaining of 1 episode of loss of consciousness, No Dizziness, No Headache Psych : No Anxiety/Panic, No Depression, No SI/HI/AH/VH, No Social Issues, Heme/Lymph: No Bruising, No Bleeding,No Lymphadenopathy Endocrine : No Polyuria, No Polydipsia, No Temperature Intolerance PMFSH Past Medical History Medical History Anxiety Asthma Cholecystectomy planned Depression IV drug user Pancreatitis PTSD (post-traumatic stress disorder) Ulcerative colitis Surgical History Tubal ligation status Social History Social History Household Members: Family Household Members Other:: mother Housing: House Do you presently have visiting nurse or other home services: No Patient Tobacco Use Status: Current everyday Tobacco user Tobacco use type: Cigarette Cigarette Packs Per Day: 1 Cigarettes Per Day: 20.0 e-Cigarette/Vaping Use: Never Used Second Hand Smoke Exposure: Yes Advance Directives: No Advance Directives Information Provided: No service: No Physical Exam ED Vital Signs: Vital Signs - 24 hr 03/09/22 21:21 03/10/22 01:53 03/10/22 01:53 Temperature 97.2 F 98.9 F Pulse Rate 91 83 83 Respiratory Rate 18 18 Blood Pressure 126/78 98/57 L 98/57 L Pulse Oximetry 97 97 Oxygen Delivery Method Room Air Room Air 03/10/22 01:55 03/10/22 01:55 03/10/22 01:55 Temperature Pulse Rate 80 97 Respiratory Rate Blood Pressure 109/64 132/59 L Pulse Oximetry 98 Oxygen Delivery Method Room Air 03/10/22 04:11 Temperature Pulse Rate 73 Respiratory Rate 17 Blood Pressure 99/51 L Pulse Oximetry 96 Oxygen Delivery Method Room Air BMI result Body Mass Index 71.5 Const Other: Appearance: Alert. Oriented X3. Eyes: Pupils equal, round and reactive to light. ENT: Pharynx normal. Neck: Normal inspection. Neck supple. No lymph nodes noted. No crepitus CVS: Normal heart rate and rhythm. Pulses normal. Normal S1 and S2 Respiratory: No respiratory distress. Breath sounds normal. No Wheezing. No rales Abdomen: Soft and nontender. No rigidity. No distention. Skin: Skin warm and dry. Normal skin color. Normal skin turgor. Extremities: No lower extremity edema. No Lacerations. No Rash Neuro: Oriented X 3. No motor deficit. No sensory deficit. Moving all extremities. No slurred speech. CN 2 through 12 grossly intact Psych: calm, cooperative, teary Course Course Course Narrative: patient's white blood cell count is within normal limits, troponin negative, EKG normal , QTc wnl, ( whenever I can sign of a lump, heart rate 81, a segment depression of the patient, QTC 455), D-dimer negative I discussed with the patient that if she continues having syncopal episodes, she will need a Holter monitor. For the headache, patient will be getting sumatriptan. Patient is allergic to aspirin, ketorolac, Reglan, ibuprofen and all NSAIDs, Phenergan, compazine, tramadol, morphine, Benadryl patient seems to be doing well. Patient is lying comfortably in her bed, watching movies on her phone. I was informed by the patient's nurse that the patient declines sumatriptan or Fioricet. Patient states that it makes her migraines worse. initially when patient came in, she did not have abdominal pain. When patient was being discharged, patient demanded to have IM medication for her pain for her chronic pancreatitis. I discussed with the patient that her lipase is normal. 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 Medical Decision Making Lab Data Result diagrams: 03/09/22 20:45 03/09/22 20:45 Labs: Lab Results 03/09/22 03/09/22 03/09/22 Range/Units 20:45 20:45 20:45 WBC 6.6 (4.8-10.8) X10*3/uL RBC 3.88 L (4.20-5.50) X10*6/uL Hgb 12.1 (12.0-16.0) g/dl Hct 35.8 L (37.0-47.0) % MCV 92.3 (80.0-98.0) fL MCH 31.2 (27.0-33.0) pg MCHC 33.8 (31.0-35.0) g/dl RDW 13.2 (11.0-16.0) % Plt Count 252 (160-400) X10*3/uL MPV 10.0 (9.4-12.3) fL Absolute Nucleated RBC 0.000 (0.0-0.012) X10*3/uL Nucleated RBC % (auto) 0.0 (0.0-0.2) /100WBC D-Dimer High Sensitivty NG/ML Sodium 140 (135-145) mmol/L Potassium 4.1 (3.3-5.1) mmol/L Chloride 103 (96-108) mmol/L Carbon Dioxide 23 (22-29) mmol/L Anion Gap 18 (12-20) BUN 11 (9-16) mg/dL Creatinine 0.70 (0.5-1.4) mg/dL Estim Creat Clear Calc TNP Estimated GFR > 60 Random Glucose 78 (60-115) mg/dL Calcium 9.0 (8.4-10.2) mg/dL Total Bilirubin 0.2 (0.0-1.0) mg/dL AST 18 (5-31) U/L ALT 16 (0-31) U/L Alkaline Phosphatase 60 D (39-117) U/L Troponin I High Sens < 3.5 (<3.5-17.0) ng/L Total Protein 7.0 (6.5-8.0) g/dL Albumin 4.2 (3.5-5.0) g/dL Lipase 5 L (8-78) U/L Beta HCG, Quant < 2 mIU/mL Urine Color Urine Appearance Urine pH (5.0-9.0) Ur Specific [place] (1.005-1.025) Urine Protein (Neg-Trace) mg/dL Urine Glucose (UA) (Negative) mg/dL Urine Ketones (Negative) mg/dL Urine Blood (Negative) Urine Nitrite (Negative) Ur Leukocyte Esterase (Negative) Urine RBC (0-2) /HPF Urine WBC (0-5) /HPF Ur Squamous Epith Cells (0-2) /HPF Urine Bacteria (None Seen) Hyaline Casts (0-2) /LPF Urine Opiates Screen (Not Detect) Urine Fentanyl Screen (Not Detect) Ur Barbiturates Screen (Not Detect) Ur Phencyclidine Scrn (Not Detect) Ur Amphetamines Screen (Not Detect) U Benzodiazepines Scrn (Not Detect) Urine Cocaine Screen (Not Detect) U Marijuana (THC) Screen (Not Detect) COVID-19 (QUE) (Negative) COVID-19 Clin Com 03/09/22 03/09/22 03/10/22 Range/Units 21:40 21:40 02:57 WBC (4.8-10.8) X10*3/uL RBC (4.20-5.50) X10*6/uL Hgb (12.0-16.0) g/dl Hct (37.0-47.0) % MCV (80.0-98.0) fL MCH (27.0-33.0) pg MCHC (31.0-35.0) g/dl RDW (11.0-16.0) % Plt Count (160-400) X10*3/uL MPV (9.4-12.3) fL Absolute Nucleated RBC (0.0-0.012) X10*3/uL Nucleated RBC % (auto) (0.0-0.2) /100WBC D-Dimer High Sensitivty NG/ML Sodium (135-145) mmol/L Potassium (3.3-5.1) mmol/L Chloride (96-108) mmol/L Carbon Dioxide (22-29) mmol/L Anion Gap (12-20) BUN (9-16) mg/dL Creatinine (0.5-1.4) mg/dL Estim Creat Clear Calc Estimated GFR Random Glucose (60-115) mg/dL Calcium (8.4-10.2) mg/dL Total Bilirubin (0.0-1.0) mg/dL AST (5-31) U/L ALT (0-31) U/L Alkaline Phosphatase (39-117) U/L Troponin I High Sens (<3.5-17.0) ng/L Total Protein (6.5-8.0) g/dL Albumin (3.5-5.0) g/dL Lipase (8-78) U/L Beta HCG, Quant mIU/mL Urine Color Yellow Urine Appearance Clear Urine pH 5.5 (5.0-9.0) Ur Specific [place] 1.020 (1.005-1.025) Urine Protein Negative (Neg-Trace) mg/dL Urine Glucose (UA) Negative (Negative) mg/dL Urine Ketones Negative (Negative) mg/dL Urine Blood Small (1+) H (Negative) Urine Nitrite Negative (Negative) Ur Leukocyte Esterase Negative (Negative) Urine RBC 3-5 H (0-2) /HPF Urine WBC 0-5 (0-5) /HPF Ur Squamous Epith Cells 3-5 (0-2) /HPF Urine Bacteria None Seen (None Seen) Hyaline Casts 0-2 (0-2) /LPF Urine Opiates Screen Not Detected (Not Detect) Urine Fentanyl Screen POSITIVE H (Not Detect) Ur Barbiturates Screen Not Detected (Not Detect) Ur Phencyclidine Scrn Not Detected (Not Detect) Ur Amphetamines Screen Not Detected (Not Detect) U Benzodiazepines Scrn Not Detected (Not Detect) Urine Cocaine Screen Not Detected (Not Detect) U Marijuana (THC) Screen POSITIVE H (Not Detect) COVID-19 (QUE) Negative (Negative) COVID-19 Clin Com See Note 03/10/22 Range/Units 02:57 WBC (4.8-10.8) X10*3/uL RBC (4.20-5.50) X10*6/uL Hgb (12.0-16.0) g/dl Hct (37.0-47.0) % MCV (80.0-98.0) fL MCH (27.0-33.0) pg MCHC (31.0-35.0) g/dl RDW (11.0-16.0) % Plt Count (160-400) X10*3/uL MPV (9.4-12.3) fL Absolute Nucleated RBC (0.0-0.012) X10*3/uL Nucleated RBC % (auto) (0.0-0.2) /100WBC D-Dimer High Sensitivty < 150 NG/ML Sodium (135-145) mmol/L Potassium (3.3-5.1) mmol/L Chloride (96-108) mmol/L Carbon Dioxide (22-29) mmol/L Anion Gap (12-20) BUN (9-16) mg/dL Creatinine (0.5-1.4) mg/dL Estim Creat Clear Calc Estimated GFR Random Glucose (60-115) mg/dL Calcium (8.4-10.2) mg/dL Total Bilirubin (0.0-1.0) mg/dL AST (5-31) U/L ALT (0-31) U/L Alkaline Phosphatase (39-117) U/L Troponin I High Sens (<3.5-17.0) ng/L Total Protein (6.5-8.0) g/dL Albumin (3.5-5.0) g/dL Lipase (8-78) U/L Beta HCG, Quant mIU/mL Urine Color Urine Appearance Urine pH (5.0-9.0) Ur Specific [place] (1.005-1.025) Urine Protein (Neg-Trace) mg/dL Urine Glucose (UA) (Negative) mg/dL Urine Ketones (Negative) mg/dL Urine Blood (Negative) Urine Nitrite (Negative) Ur Leukocyte Esterase (Negative) Urine RBC (0-2) /HPF Urine WBC (0-5) /HPF Ur Squamous Epith Cells (0-2) /HPF Urine Bacteria (None Seen) Hyaline Casts (0-2) /LPF Urine Opiates Screen (Not Detect) Urine Fentanyl Screen (Not Detect) Ur Barbiturates Screen (Not Detect) Ur Phencyclidine Scrn (Not Detect) Ur Amphetamines Screen (Not Detect) U Benzodiazepines Scrn (Not Detect) Urine Cocaine Screen (Not Detect) U Marijuana (THC) Screen (Not Detect) COVID-19 (QUE) (Negative) COVID-19 Clin Com Imaging Data CT scan - head: Radiologist's impression: FINDINGS: There is no evidence of acute intracranial hemorrhage or territorial infarction. No abnormal mass-effect or midline shift is seen. Green to white matter differentiation is well preserved. No extra-axial fluid collections are identified. The ventricles are normal in size. There is no abnormal attenuation within the brain parenchyma. The osseous structures and soft tissues are normal. Partial opacification of the posterior left ethmoid air cells. The mastoid air cells are well-aerated. ? CT/CT head/brain wo IV con IMPRESSION: No acute intracranial pathology. Discharge Plan Discharge Clinical Impression: Headache, migraine, Nausea & vomiting, Syncope Patient Disposition: Home, Self-Care Instructions: Migraine Headache (ED), Syncope (ED), Acute Nausea and Vomiting (ED) Additional Instructions: Please follow-up with your primary care physician tomorrow. If you have any worsening or new symptoms, please return to the emergency room or call 911 Prescriptions: New sumatriptan succinate 50 mg tablet See Rx Instructions .ROUTE .COMPLEX Qty: 10 0RF Rx Instructions: take 1 tab at onset of headache; if no relief may repeat 1 tab after at least 2 hrs; max = 4 tabs/24 hr ondansetron 4 mg tablet,disintegrating 4 mg PO Q6H PRN (Reason: nausea and vomiting) Qty: 10 0RF No Action fluticasone propion-salmeterol [Advair Diskus] 250-50 mcg/dose Blister With Device 1 inh INHALATION BID sertraline 100 mg tablet 1 tab PO DAILY cyanocobalamin (vitamin B-12) [Vitamin B-12] 1,000 mcg Tablet 1,000 mcg PO DAILY methadone [Methadose] 40 mg Tablet,Soluble 40 mg PO DAILY albuterol sulfate [Ventolin HFA] 90 mcg/actuation Hfa Aerosol Inhaler 2 puff INHALATION TID PRN (Reason: Shortness Of Breath) prazosin 2 mg capsule 1 cap PO BEDTIME quetiapine 50 mg tablet 1 tab PO BEDTIME doxycycline hyclate 100 mg capsule 100 mg PO BID Qty: 20 0RF oxycodone 5 mg tablet 5 mg PO Q6H PRN (Reason: pain (scale score 7-10)) Qty: 14 0RF
[2022-03-10 02:17] LABS: Lipase 5 U/L (8-78)
[2022-03-10 02:31] LABS: Amphetamine Screen Urine Not Detected (Not Detect); Barbiturates, Urine Not Detected (Not Detect); Benzodiazepines Screen Urine Not Detected (Not Detect); Cannabinoid Screen Urine POSITIVE (Not Detect); Cocaine Screen Urine Not Detected (Not Detect); Fentanyl, urine POSITIVE (Not Detect); Opiate Screen Urine Not Detected (Not Detect); Phencyclidine Screen Urine Not Detected (Not Detect)
[2022-03-10] MEDS: Ondansetron ODT 4 MG TAB.RAPDIS TRANSLINGU (02:32)
[2022-03-10 03:12] LABS: D Dimer High Sensitivity < 150 NG/ML
[2022-03-10] MEDS: Meclizine HCl 25 MG TABLET 50 MG PO (03:13)
[2022-03-10 03:20] LABS: COVID-19 Test Negative (Negative)
[2022-03-10 04:11] VITALS: BP 99/51; PULSE 73; RESP 17; O2SAT 96
--- NOTE | 2022-03-10 04:43 | PC.NURSE ---
Pt currently resting comfortably in the stretcher with eyes closed, respirations even and unlabored without distress noted. The pt's discharge is pending clinical specialist medical device, medication not available in ED pyxis. inside sales supervisor made aware and will retrieve the medication on this RN's behalf.
--- NOTE | 2022-03-10 05:00 | PC.NURSE ---
RN to bedside once Sumatriptan received from pump house operator. The pt was easily arousable to verbal stimuli at which time she declined the sumatriptan reporting she's taken it in the past and it only makes me worse, why would i take somehting that only makes me worse? . Pt stated I thought she was giving me something else , RN consulted with MD Martines about additional medication for her migraines. Per MD Martines nothing additional would be ordered at this time due to her allergies. RN back to bedside to explain this and pt stated What am I allergic to that you can't give me? , RN reviewed the pt's allergy list adding that the medications normally given for migraine (toradol, benadryl, reglan and morphine) she is allergic to to which she responded Morphine isn't an allergy, it only makes me angry . MD Martines made aware and no new orders were provided, RN advised to continue with discharge as scheduled. Please see discharge note for additional details.
== END 2022-03-10 05:15 | disposition home or self-care (01) ==
PROVIDERS: Emergency Provider Emergency Medicine; PCP Internal Medicine
DX: R55 Syncope and collapse (principal); R51.9 Headache, unspecified; R42 Dizziness and giddiness; Z20.822 Contact with and (suspected) exposure to COVID-19; Z79.899 Other long term (current) drug therapy; F17.210 Nicotine dependence, cigarettes, uncomplicated; Z71.6 Tobacco abuse counseling
CPT/HCPCS: 36415; 70450; 80053; 80307; 81001; 83690; 84484; 84702; 85027; 85379; 87635; 93005; 99284

== ENCOUNTER 2024-05-18 16:44 | Outpatient (REF) | payer OTHER, SELFPAY ==
[2024-05-18 17:11] LABS: MANUAL DIFF FLAG NO
[2024-05-18 17:16] LABS: Basophils Percent Auto 0.3 % (0-2); Eosinophils Absolute Auto 0.2 X10*3/uL (0.0-0.4); Eosinophils Percent Auto 1.8 % (0-4); Hemoglobin 11.3 g/dl (12.0-16.0); Imm Gran Abs Auto 0.04 X10*3/uL (0.00-0.03); Imm Gran Pct Auto 0.4 % (0.0-0.4); Lymphocytes Absolute Auto 3.4 X10*3/uL (1.2-4.9); Lymphocytes Percent Auto 35.3 % (20-40); Mean Corpuscular HGB Conc 32.3 g/dl (31.0-35.0); Mean Corpuscular Hemoglobin 29.4 pg (27.0-33.0); Mean Corpuscular Volume 91.1 fL (80.0-98.0); Mean Platelet Volume 9.9 fL (9.4-12.3); Monocytes Absolute Auto 0.6 X10*3/uL (0.1-1.2); Monocytes Percent Auto 5.9 % (2-11); Neutrophils Absolute Auto 5.4 x10*3/uL (2.0-8.3); Neutrophils Percent Auto 56.3 % (45-73); Platelet Count 258 X10*3/uL (160-400); Red Blood Count 3.84 X10*6/uL (4.20-5.50); Red Cell Distribution Width 15.7 % (11.0-16.0); White Blood Count 9.5 X10*3/uL (4.8-10.8)
[2024-05-18 18:01] LABS: Alanine Aminotransferase 9 U/L (0-31); Albumin Level 4.1 g/dL (3.5-5.0); Alkaline Phosphatase 53 U/L (39-117); Anion Gap 9 (12-20); Aspartate Amino Transferase 15 U/L (5-31); Bilirubin Total 0.2 mg/dL (0.0-1.0); Blood Urea Nitrogen 15 mg/dL (9-16); Calcium 8.8 mg/dL (8.4-10.2); Carbon Dioxide 30 mmol/L (22-29); Chloride 104 mmol/L (96-108); Cholesterol 195 mg/dL (<200); Estimated Glomerular Filt Rate > 60; Glucose Random 73 mg/dL (60-115); HDL Cholesterol 63 mg/dL (>40); LDL Cholesterol Calculated 103 mg/dL (<100); Potassium 3.5 mmol/L (3.3-5.1); Sodium 139 mmol/L (135-145); Total Protein 6.6 g/dL (6.5-8.0); Triglycerides 148 mg/dL (<150)
[2024-05-19 03:37] LABS: Syphilis Screen Nonreactive (Nonreactive)
[2024-05-19 04:02] LABS: HBsAGNum1 0.33 S/CO (0.00-0.99); Hepatitis B Surface Antigen Negative (Negative); ~HepC Num1 0.07 S/CO (0.00-0.79); ~Hepatitis C Antibody Nonreactive (Nonreactive)
== END 2024-05-18 16:45 | disposition home or self-care (01) ==
LOC: HO.LAB 16:44
PROVIDERS: PCP Internal Medicine; Referring Provider Internal Medicine; Visit Provider Physician Assistant Medical
DX: B37.32 Chronic candidiasis of vulva and vagina (principal); E78.00 Pure hypercholesterolemia, unspecified
CPT/HCPCS: 36415; 80053; 80061; 85025; 86780; 86803; 87340